=== PATIENT | male | born 1945 | race Caucasian/White ===

== ENCOUNTER 2021-03-06 11:07 | Emergency (ER) | payer OTHER ==
[~2021-03-06] VITALS: Ht 177.8 cm; Wt 79.4 kg
[~2021-03-06 11:07] MED LIST: AMLO5 PO; ATEN50 PO; DIVA500ER PO
[2021-03-06 12:23] LABS: BASOPHILS ABSOLUTE AUTO 0.07 K/mm3 (0.00-0.23); BASOPHILS PERCENT AUTO 1 % (0-2); EOSINOPHILS ABSOLUTE AUTO 0.25 K/mm3 (0.00-0.68); EOSINOPHILS PERCENT AUTO 3 % (0-6); Hematocrit 35.7 % (37.0-53.0); Hemoglobin 11.4 g/dL (13.5-17.5); IMMATURE GRAN ABSOLUTE AUTO 0.17 K/mm3 (0.00-0.10); IMMATURE GRAN PERCENT AUTO 2 % (0-1); LYMPHOCYTES ABSOLUTE AUTO 1.86 K/mm3 (0.84-5.20); LYMPHOCYTES PERCENT AUTO 19 % (21-46); MONOCYTES PERCENT AUTO 8 % (4-13); Mean Corpuscular HGB 27.3 pg (26.0-34.0); Mean Corpuscular HGB Conc 31.9 g/dL (31.5-36.5); Mean Corpuscular Volume 86 fL (80-100); Mean Platelet Volume 9.5 fL (9.1-12.4); NEUTROPHILS ABSOLUTE AUTO 6.47 K/mm3 (1.96-9.15); NEUTROPHILS PERCENT AUTO 67 % (41-73); Platelet Count 314 K/mm3 (150-400); RDW Coefficient Variation 15.4 % (11.7-14.2); RDW Standard Deviation 48.3 fL (35.1-46.3); Red Blood Cell Count 4.17 M/mm3 (4.30-5.90); White Blood Cell Count 9.62 K/mm3 (4.00-11.30)
[2021-03-06 12:49] LABS: Acetaminophen, Random <2.0 ug/mL (10.0-30.0); Alanine Aminotransfer (ALT/SGP 24 U/L (12-78); Albumin, Blood 2.7 g/dL (3.4-5.0); Albumin/Globulin Ratio 0.8 (0.8-1.8); Alk Phos 83 U/L (50-136); Anion Gap 9 mmol/L (6-16); Aspartate Aminotrans (AST/SGOT 15 U/L (12-37); Bilirubin, Total 0.2 mg/dL (0.1-1.0); Blood Urea Nitrogen 23 mg/dL (8-24); Bun/Creatinine Ratio 23.4 (12.0-20.0); CO2, Blood 26 mmol/L (21-32); Calcium, Blood 8.5 mg/dL (8.5-10.1); Chloride, Blood 107 mmol/L (98-108); Creatinine, Blood 0.98 mg/dL (0.60-1.20); Ethanol (Alcohol), Blood, Med 3 mg/dL; Globulin, Blood 3.5 g/dL (2.2-4.0); Glomerular Filtration Rate >60 (60-); Glucose, Blood 203 mg/dL (70-99); Potassium, Blood 4.2 mmol/L (3.5-5.5); Salicylate <1.7 mg/dL (2.8-20.0); Sodium, Blood 142 mmol/L (136-145); Total Protein, Blood 6.2 g/dL (6.4-8.2)
[2021-03-06 16:48] LABS: Source, Urine Catheter
[2021-03-06 17:18] LABS: Appearance, Urine Hazy (Clear); Bilirubin, Urine Neg (Neg); Blood, Urine Neg (Neg); Color, Urine Yellow (P-Yellow); Glucose Qualitative, Urine 2+ (Neg); Ketones, Urine Neg (Neg); Leukocyte Esterase, Urine Neg (Neg); Nitrite, Urine Neg (Neg); Protein, Urine Neg (Neg); Urobilinogen, Urine NORM (Normal)
[2021-03-06 17:21] LABS: U Amphetamine Screen Not Detected; U Barbituate Screen Not Detected; U Benzodiazapine Screen Not Detected; U Buprenorphine Screen Not Detected; U Cannabinoids Screen Not Detected; U Cocaine Screen Not Detected; U Methadone Screen Not Detected; U Methamphetamine Screen Not Detected; U Opiates Screen Not Detected; U Oxycodone Screen Not Detected; U Phencyclidine Screen Not Detected; U Propoxyphene Screen Not Detected
[2021-03-06 17:39] LABS: Bacteria Rare /hpf; Red Blood Cells, Urine 0-2 /hpf (0-2); Squamous Epithelial Cells Rare /hpf (Few); White Blood Cells, Urine 0-2 /hpf (0-5)
[2021-03-06 17:40] LABS: Amorphous Mod (0-Heavy)
[2021-03-06] MEDS ORDERED: OLANZAPINE MM (17:54)
== END 2021-03-06 18:07 | disposition home or self-care (01) ==
LOC: ER 11:07
PROVIDERS: Student in an Organized Health Care Education/Training Program
DX: R41.0 Disorientation, unspecified (principal); R45.1 Restlessness and agitation; I10 Essential (primary) hypertension; Z79.899 Other long term (current) drug therapy
CPT/HCPCS: 36415; 51701; 70450; 71045; 80053; 81001; 85025; 86592; 93005; 93010; 99285-25; A9270; G0480

== ENCOUNTER 2021-03-07 15:17 | Emergency (ER) | payer OTHER ==
[~2021-03-07] VITALS: Ht 177.8 cm; Wt 122.5 kg
[~2021-03-07 15:17] MED LIST changes: +OLANZAPINE MM
== END 2021-03-07 16:51 | disposition home or self-care (01) ==
LOC: ER 15:17
DX: S02.5XXA Fracture of tooth (traumatic), initial encounter for closed fracture (principal); S01.511A Laceration without foreign body of lip, initial encounter; S00.33XA Contusion of nose, initial encounter; S80.211A Abrasion, right knee, initial encounter; I10 Essential (primary) hypertension; Z79.899 Other long term (current) drug therapy; W19.XXXA Unspecified fall, initial encounter
CPT/HCPCS: 12011; 99283-25

== ENCOUNTER 2021-03-08 19:59 | Observation (INO) | payer OTHER ==
[~2021-03-08] VITALS: Ht 188 cm; Wt 117.9 kg
[2021-03-08 20:25] LABS: BASOPHILS ABSOLUTE AUTO 0.08 K/mm3 (0.00-0.23); BASOPHILS PERCENT AUTO 1 % (0-2); EOSINOPHILS PERCENT AUTO 2 % (0-6); Hematocrit 38.7 % (37.0-53.0); Hemoglobin 12.2 g/dL (13.5-17.5); IMMATURE GRAN ABSOLUTE AUTO 0.17 K/mm3 (0.00-0.10); IMMATURE GRAN PERCENT AUTO 1 % (0-1); LYMPHOCYTES ABSOLUTE AUTO 2.09 K/mm3 (0.84-5.20); LYMPHOCYTES PERCENT AUTO 17 % (21-46); MONOCYTES ABSOLUTE AUTO 1.32 K/mm3 (0.16-1.47); MONOCYTES PERCENT AUTO 11 % (4-13); Mean Corpuscular HGB Conc 31.5 g/dL (31.5-36.5); Mean Corpuscular Volume 86 fL (80-100); Mean Platelet Volume 9.4 fL (9.1-12.4); NEUTROPHILS ABSOLUTE AUTO 8.41 K/mm3 (1.96-9.15); NEUTROPHILS PERCENT AUTO 68 % (41-73); Platelet Count 323 K/mm3 (150-400); RDW Coefficient Variation 15.5 % (11.7-14.2); RDW Standard Deviation 48.3 fL (35.1-46.3); Red Blood Cell Count 4.52 M/mm3 (4.30-5.90); White Blood Cell Count 12.37 K/mm3 (4.00-11.30)
[2021-03-08 20:48] LABS: Acetaminophen, Random <2.0 ug/mL (10.0-30.0); Alanine Aminotransfer (ALT/SGP 25 U/L (12-78); Albumin/Globulin Ratio 0.8 (0.8-1.8); Alk Phos 77 U/L (50-136); Anion Gap 7 mmol/L (6-16); Aspartate Aminotrans (AST/SGOT 17 U/L (12-37); Bilirubin, Total 0.2 mg/dL (0.1-1.0); Blood Urea Nitrogen 18 mg/dL (8-24); Bun/Creatinine Ratio 21.8 (12.0-20.0); CO2, Blood 27 mmol/L (21-32); Calcium, Blood 8.8 mg/dL (8.5-10.1); Chloride, Blood 108 mmol/L (98-108); Creatinine, Blood 0.83 mg/dL (0.60-1.20); Ethanol (Alcohol), Blood, Med <3 mg/dL; Globulin, Blood 3.7 g/dL (2.2-4.0); Glomerular Filtration Rate >60 (60-); Glucose, Blood 115 mg/dL (70-99); Potassium, Blood 4.4 mmol/L (3.5-5.5); Salicylate <1.7 mg/dL (2.8-20.0); Sodium, Blood 142 mmol/L (136-145); Total Protein, Blood 6.7 g/dL (6.4-8.2)
[2021-03-08 21:24] LABS: Influenza A, PCR NEGATIVE (NEGATIVE); Influenza B, PCR NEGATIVE (NEGATIVE); Resp Syncytial Virus, PCR NEGATIVE (NEGATIVE); SARS-Cov-2 (COVID-19) PCR, MMC NEGATIVE (NEGATIVE)
[2021-03-11 21:39] LABS: BASOPHILS ABSOLUTE AUTO 0.06 K/mm3 (0.00-0.23); BASOPHILS PERCENT AUTO 0 % (0-2); EOSINOPHILS ABSOLUTE AUTO 0.17 K/mm3 (0.00-0.68); EOSINOPHILS PERCENT AUTO 1 % (0-6); Hematocrit 37.6 % (37.0-53.0); Hemoglobin 11.9 g/dL (13.5-17.5); IMMATURE GRAN ABSOLUTE AUTO 0.16 K/mm3 (0.00-0.10); IMMATURE GRAN PERCENT AUTO 1 % (0-1); LYMPHOCYTES ABSOLUTE AUTO 1.74 K/mm3 (0.84-5.20); LYMPHOCYTES PERCENT AUTO 12 % (21-46); MONOCYTES ABSOLUTE AUTO 1.71 K/mm3 (0.16-1.47); MONOCYTES PERCENT AUTO 12 % (4-13); Mean Corpuscular HGB 26.7 pg (26.0-34.0); Mean Corpuscular HGB Conc 31.6 g/dL (31.5-36.5); Mean Corpuscular Volume 85 fL (80-100); Mean Platelet Volume 9.3 fL (9.1-12.4); NEUTROPHILS ABSOLUTE AUTO 10.35 K/mm3 (1.96-9.15); NEUTROPHILS PERCENT AUTO 73 % (41-73); Platelet Count 294 K/mm3 (150-400); RDW Coefficient Variation 15.6 % (11.7-14.2); RDW Standard Deviation 47.9 fL (35.1-46.3); Red Blood Cell Count 4.45 M/mm3 (4.30-5.90); White Blood Cell Count 14.19 K/mm3 (4.00-11.30)
[2021-03-11 21:44] LABS: Source, Urine Catheter
[2021-03-11 21:54] LABS: Appearance, Urine Clear (Clear); Bilirubin, Urine Neg (Neg); Color, Urine Yellow (P-Yellow); Glucose Qualitative, Urine Neg (Neg); Nitrite, Urine Neg (Neg)
[2021-03-11 22:22] LABS: Blood, Urine 1+ (Neg); Ketones, Urine Neg (Neg); Leukocyte Esterase, Urine Neg (Neg); Protein, Urine Neg (Neg); Urobilinogen, Urine NORM (Normal)
[2021-03-11 22:32] LABS: Bacteria Rare /hpf; Red Blood Cells, Urine 0-2 /hpf (0-2); Squamous Epithelial Cells Rare /hpf (Few); White Blood Cells, Urine 0-2 /hpf (0-5)
[2021-03-11 22:33] LABS: Spermatozoa Few /hpf
[2021-03-12 02:06] LABS: Alanine Aminotransfer (ALT/SGP 23 U/L (12-78); Albumin, Blood 2.9 g/dL (3.4-5.0); Albumin/Globulin Ratio 0.7 (0.8-1.8); Alk Phos 70 U/L (50-136); Anion Gap 7 mmol/L (6-16); Aspartate Aminotrans (AST/SGOT 15 U/L (12-37); Bilirubin, Total 0.3 mg/dL (0.1-1.0); Blood Urea Nitrogen 21 mg/dL (8-24); Bun/Creatinine Ratio 22.1 (12.0-20.0); CO2, Blood 27 mmol/L (21-32); Calcium, Blood 9.3 mg/dL (8.5-10.1); Chloride, Blood 108 mmol/L (98-108); Creatinine, Blood 0.95 mg/dL (0.60-1.20); Globulin, Blood 4.3 g/dL (2.2-4.0); Glomerular Filtration Rate >60 (60-); Glucose, Blood 125 mg/dL (70-99); Potassium, Blood 4.4 mmol/L (3.5-5.5); Sodium, Blood 142 mmol/L (136-145); Total Protein, Blood 7.2 g/dL (6.4-8.2)
[2021-03-12 03:11] LABS: Influenza A, PCR NEGATIVE (NEGATIVE); Influenza B, PCR NEGATIVE (NEGATIVE); Resp Syncytial Virus, PCR NEGATIVE (NEGATIVE); SARS-Cov-2 (COVID-19) PCR, MMC NEGATIVE (NEGATIVE)
[2021-03-12 07:28] LABS: BASOPHILS ABSOLUTE AUTO 0.03 K/mm3 (0.00-0.23); BASOPHILS PERCENT AUTO 0 % (0-2); EOSINOPHILS ABSOLUTE AUTO 0.27 K/mm3 (0.00-0.68); EOSINOPHILS PERCENT AUTO 3 % (0-6); Hematocrit 35.1 % (37.0-53.0); Hemoglobin 11.2 g/dL (13.5-17.5); IMMATURE GRAN PERCENT AUTO 1 % (0-1); LYMPHOCYTES ABSOLUTE AUTO 1.71 K/mm3 (0.84-5.20); LYMPHOCYTES PERCENT AUTO 16 % (21-46); MONOCYTES ABSOLUTE AUTO 1.28 K/mm3 (0.16-1.47); MONOCYTES PERCENT AUTO 12 % (4-13); Mean Corpuscular HGB 27.1 pg (26.0-34.0); Mean Corpuscular HGB Conc 31.9 g/dL (31.5-36.5); Mean Corpuscular Volume 85 fL (80-100); Mean Platelet Volume 9.2 fL (9.1-12.4); NEUTROPHILS PERCENT AUTO 69 % (41-73); Platelet Count 241 K/mm3 (150-400); RDW Coefficient Variation 15.8 % (11.7-14.2); RDW Standard Deviation 48.5 fL (35.1-46.3); Red Blood Cell Count 4.14 M/mm3 (4.30-5.90); White Blood Cell Count 10.99 K/mm3 (4.00-11.30)
--- NOTE | 2021-03-12 17:58 | NUR ---
SHIFT SUMMARY PATIENT IS ALERT AND ORIENTED X3, PLEASANT AND COOPERATIVE WITH CARE. THE PATIENT IS IMPULSIVE AT TIMES, BUT REDIRECTABLE. LR BOLUS OF 5OOMLS GIVEN NOW. EKG ORDERED. IV IN LEFT FOREARM PATENT AND INFUSING NOW. PATIENT HAS BEEN INCONTINENT THIS SHIFT X2. PATIENT DENIES ANY PAIN OR DISCOMFORT. MD HOLD DC'D THIS SHIFT. PATIENT WORKED WITH PT/OT THIS SHIFT. PATIENT IS CURRENTLY EATING DINNER UP IN THEIR CHAIR. THIS NURSE WILL CONTINUE TO CARE FOR THE PATIENT UNTIL SHIFT REPORT IS GIVEN TO ONCOMING NURSE.
--- NOTE | 2021-03-12 19:16 | NUR ---
EKG DONE AT 1830 PER MD GARCIA'S ORDERS. EKG PRINT OUT READS SINUS TACH.
--- NOTE | 2021-03-13 05:36 | NUR ---
WILBUR SLEPT WELL OVERNIGHT WAKING TWICE WHEN HE HAD EPISODES OF URINE AND BOWEL INCONTINENCE. 2 STOOLS WERE SOFT FORMED BROWN. ONE LARGE, ONE SMALL. NO COMPLAINTS OF DISCOMFORT, HOWEVER HE WOULD GRIMACE WHEN PULLED UP THE BED, THEN DENY PAIN WHEN ASKED. WILBUR DOES HAVE A HEALTHY APPETITE FOR OJ AND CHEESE. EATING A SUBSTANTIAL AMOUNT IN THE EVENING. ,
[2021-03-13 05:53] LABS: BASOPHILS ABSOLUTE AUTO 0.04 K/mm3 (0.00-0.23); BASOPHILS PERCENT AUTO 0 % (0-2); EOSINOPHILS PERCENT AUTO 3 % (0-6); Hematocrit 34.5 % (37.0-53.0); Hemoglobin 10.8 g/dL (13.5-17.5); IMMATURE GRAN ABSOLUTE AUTO 0.13 K/mm3 (0.00-0.10); IMMATURE GRAN PERCENT AUTO 1 % (0-1); LYMPHOCYTES ABSOLUTE AUTO 2.23 K/mm3 (0.84-5.20); LYMPHOCYTES PERCENT AUTO 19 % (21-46); MONOCYTES ABSOLUTE AUTO 1.53 K/mm3 (0.16-1.47); MONOCYTES PERCENT AUTO 13 % (4-13); Mean Corpuscular HGB 26.3 pg (26.0-34.0); Mean Corpuscular HGB Conc 31.3 g/dL (31.5-36.5); Mean Corpuscular Volume 84 fL (80-100); Mean Platelet Volume 9.4 fL (9.1-12.4); NEUTROPHILS ABSOLUTE AUTO 7.78 K/mm3 (1.96-9.15); NEUTROPHILS PERCENT AUTO 65 % (41-73); Platelet Count 256 K/mm3 (150-400); RDW Coefficient Variation 15.6 % (11.7-14.2); White Blood Cell Count 12.01 K/mm3 (4.00-11.30)
[2021-03-13 07:10] LABS: COMPLEMENT C3, SERUM 180 mg/dL (82-167); COMPLEMENT C4, SERUM 31 mg/dL (12-38)
[2021-03-13] MEDS ORDERED: LOSA25 PO (07:34)
--- NOTE | 2021-03-13 17:21 | NUR ---
SHIFT SUMMARY PATIENT IS ALERT AND ORIENTED X3 UNSURE OF THE DATE. PATIENT DOES NOT UNDERSTAND WHY THEY ARE HERE. THE PATIENT HAD HYDRALIZINE FOR SYSTOLIC BP > 160. THE PATIENT IS RESTING IN BED. DECLINED GETTING UP IN CHAIR FOR DINNER. THE PATIENT IS ON RA. NO TELE. BEDALARM ER RN LIGHT WITHIN REACH. THIS NURSE WILL CONTINUE TO CARE FOR THE PATIENT UNTIL SHIFT REPORT IS GIVEN TO ONCOMING NURSE.
--- NOTE | 2021-03-13 20:52 | NUR ---
MULTIPLE OOB ATTEMPTS. ON CAMERA/BED ALARM. PATIENT SIDEWAYS IN BED. THREE ASSIST BACK INTO BED. PATIENT NOT ABLE TO ORIENT AND FOLLOW DIRECTIONS AT THIS TIME. BED ALARM ACTIVATED.
--- NOTE | 2021-03-14 03:54 | NUR ---
SHIFT SUMMARY PATIENT AXOX 2 WITH HX DEMENTIA AND BIPOLAR. IMPULSIVE HAVING MULTIPLE OOB ATTEMPTS LAYING SIDEWAYS IN BED ON ONE ATTEMPT. THREE PERSON ASSIST BACK INTO BED. ON CAMERA AND BED ALARM. NOT ABLE TO REDIRECT AT THIS TIME. SCHEDULE SEROQUEL 100 MG GIVEN AND ABLE TO SLEEP HALF THE SHIFT. VSS/AFEBRILE. HR 110 AT START OF SHIFT AND HR 103 ON SECOND SET VITALS. DENIES PAIN, SOB, AND N/V. PIV REMAINS INTACT. CALL LIGHT IN REACH. BED IN LOWEST POSITION AND ALARM ACTIVATED. WILL CONTINUE TO MONITOR UNTIL DAY SHIFT NURSE ASSUMES CARE.
[2021-03-14 05:04] LABS: BASOPHILS ABSOLUTE AUTO 0.06 K/mm3 (0.00-0.23); BASOPHILS PERCENT AUTO 1 % (0-2); EOSINOPHILS ABSOLUTE AUTO 0.44 K/mm3 (0.00-0.68); EOSINOPHILS PERCENT AUTO 4 % (0-6); Hematocrit 35.3 % (37.0-53.0); Hemoglobin 11.1 g/dL (13.5-17.5); IMMATURE GRAN ABSOLUTE AUTO 0.14 K/mm3 (0.00-0.10); IMMATURE GRAN PERCENT AUTO 1 % (0-1); LYMPHOCYTES ABSOLUTE AUTO 2.13 K/mm3 (0.84-5.20); LYMPHOCYTES PERCENT AUTO 18 % (21-46); MONOCYTES ABSOLUTE AUTO 1.58 K/mm3 (0.16-1.47); MONOCYTES PERCENT AUTO 13 % (4-13); Mean Corpuscular HGB 26.5 pg (26.0-34.0); Mean Corpuscular HGB Conc 31.4 g/dL (31.5-36.5); Mean Corpuscular Volume 84 fL (80-100); Mean Platelet Volume 9.8 fL (9.1-12.4); NEUTROPHILS ABSOLUTE AUTO 7.82 K/mm3 (1.96-9.15); NEUTROPHILS PERCENT AUTO 64 % (41-73); Platelet Count 282 K/mm3 (150-400); RDW Coefficient Variation 15.5 % (11.7-14.2); RDW Standard Deviation 47.5 fL (35.1-46.3); Red Blood Cell Count 4.19 M/mm3 (4.30-5.90); White Blood Cell Count 12.17 K/mm3 (4.00-11.30)
[2021-03-14 05:30] LABS: Anion Gap 6 mmol/L (6-16); Blood Urea Nitrogen 21 mg/dL (8-24); Bun/Creatinine Ratio 23.3 (12.0-20.0); CO2, Blood 27 mmol/L (21-32); Calcium, Blood 8.4 mg/dL (8.5-10.1); Chloride, Blood 108 mmol/L (98-108); Glomerular Filtration Rate >60 (60-); Glucose, Blood 104 mg/dL (70-99); Sodium, Blood 141 mmol/L (136-145)
--- NOTE | 2021-03-14 17:01 | NUR ---
SHIFT SUMMARY PT WAS UP WITH THE WALKER STANDBY ASSIST TODAY TO THE BATHROOMAND UP AND DOWN THE WATTS. HE STILL HAS NT HAD A BOWEL MOVEMENT AND HIS ABDOMEN IS DISTENDED AND HARD. HE PASSED GAS THIS MORNING, BUT HAS NOT HAD A BM. BOWEL PREP WAS ORDRED FOR THE PT FOR TOMORROW. HE DENIES PAIN ON PALAPATION. FADI CONTINUE TO MONITOR.
[2021-03-14 17:09] LABS: ANTI-DSDNA ANTIBODIES <1 IU/mL (0-9); RNP ANTIBODIES <0.2 AI (0.0-0.9); SJOGREN'S ANTI-SS-A <0.2 AI (0.0-0.9); SJOGREN'S ANTI-SS-B <0.2 AI (0.0-0.9); SMITH ANTIBODIES <0.2 AI (0.0-0.9)
--- NOTE | 2021-03-15 03:57 | NUR ---
SHIFT SUMMARY PATIENT HAD NO ACUTE CHANGES OBSERVED. LESS IMPULSIVE THIS SHIFT. AXOX 2 AND UP IN CHAIR T/O SHIFT, SLEEPING MOST OF SHIFT. HX DEMENTIA AND BIPOLAR. VSS/AFEBRILE. DENIES PAIN, SOB, AND N/V. ON CAMERA. TAKES MEDICATION WHOLE WITH WATER. CALL LIGHT IN REACH. BED IN LOWEST POSITION. WILL CONTINUE TO MONITOR UNTIL DAY SHIFT NURSE ASSUMES CARE.
[2021-03-15 05:10] LABS: BASOPHILS ABSOLUTE AUTO 0.06 K/mm3 (0.00-0.23); BASOPHILS PERCENT AUTO 0 % (0-2); EOSINOPHILS ABSOLUTE AUTO 0.32 K/mm3 (0.00-0.68); EOSINOPHILS PERCENT AUTO 2 % (0-6); Hematocrit 35.5 % (37.0-53.0); Hemoglobin 11.3 g/dL (13.5-17.5); IMMATURE GRAN ABSOLUTE AUTO 0.19 K/mm3 (0.00-0.10); IMMATURE GRAN PERCENT AUTO 1 % (0-1); LYMPHOCYTES ABSOLUTE AUTO 1.62 K/mm3 (0.84-5.20); LYMPHOCYTES PERCENT AUTO 12 % (21-46); MONOCYTES PERCENT AUTO 13 % (4-13); Mean Corpuscular HGB 26.7 pg (26.0-34.0); Mean Corpuscular HGB Conc 31.8 g/dL (31.5-36.5); Mean Corpuscular Volume 84 fL (80-100); Mean Platelet Volume 9.5 fL (9.1-12.4); NEUTROPHILS ABSOLUTE AUTO 9.83 K/mm3 (1.96-9.15); NEUTROPHILS PERCENT AUTO 71 % (41-73); Platelet Count 287 K/mm3 (150-400); RDW Coefficient Variation 15.5 % (11.7-14.2); RDW Standard Deviation 46.3 fL (35.1-46.3); Red Blood Cell Count 4.23 M/mm3 (4.30-5.90); White Blood Cell Count 13.82 K/mm3 (4.00-11.30)
--- NOTE | 2021-03-15 11:11 | NUR ---
LATE ENTRY: 0950: DISCUSSION WITH DR. CLANCY DURING ROUNDING. DR. CLANCY REPORTS THAT CURRENT PLAN IS PLACEMENT IN MEMORY CARE FACILITY INSTEAD OF INPATIENT PSYCHIATRIC. NO ACUTE CHANGES OR CONCERNS AT THIS TIME. WILL CONTINUE TO NAOMY.
--- NOTE | 2021-03-15 16:24 | NUR ---
SHIFT SUMMARY CURTIS WAS VISITED BY HIS ERICA, FOR SEVERAL HOURS THIS AFTERNOON. CURTIS REALLY ENJOYS HIS ICE CREAM, AND MADE MANY REQUESTS FOR ICE CREAM. RN ENCOURAGED WATER INTAKE. CURTIS VOIDING IN ATTENDS. DOZING IN HIS RECLINER, EATING WELL. NO ACUTE CHANGES. WILL CONTINUE TO MONITOR. PLAN: AWAITING PLACEMENT. HE IS PLEASANT, COOPERATIVE WITH CARE.
--- NOTE | 2021-03-16 03:21 | NUR ---
SHIFT SUMMARY PATIENT HAD NO ACUTE CHANGES OBSERVED. AXOX 2-3 WITH HX OF DEMENTIA. VSS/AFEBRILE. DENIES PAIN, SOB, AND N/V. UP IN CHAIR T/O SHIFT. SLEPT OR WATCHED TV. IMPULSIVE AT TIMES, ON CAMERA. NO EVENTS. CALL LIGHT IN REACH. BED IN LOWEST POSITION. WILL CONTINUE TO MONITOR UNTIL DAY SHIFT NURSE ASSUMES CARE.
--- NOTE | 2021-03-16 18:25 | NUR ---
DAY SHIFT SUMMARY 75 YR OLD MALE, SPENT MOST OF DAY IN CHAIR AT BEDSIDE. CHAIR ALARM ON. MILK OF MAG ADDED TO EMAR FOR BOWEL CARE. CONFUSED, ABRASSIONS PRESENT TO FACE FROM FALL AT HOME. PT ON RA, MEDS WHOLE. CALL LIGHT WITHIN REACH.
[2021-03-17 05:18] LABS: BASOPHILS ABSOLUTE AUTO 0.06 K/mm3 (0.00-0.23); BASOPHILS PERCENT AUTO 1 % (0-2); EOSINOPHILS ABSOLUTE AUTO 0.55 K/mm3 (0.00-0.68); EOSINOPHILS PERCENT AUTO 5 % (0-6); Hematocrit 33.9 % (37.0-53.0); Hemoglobin 10.6 g/dL (13.5-17.5); IMMATURE GRAN ABSOLUTE AUTO 0.13 K/mm3 (0.00-0.10); IMMATURE GRAN PERCENT AUTO 1 % (0-1); LYMPHOCYTES ABSOLUTE AUTO 2.05 K/mm3 (0.84-5.20); LYMPHOCYTES PERCENT AUTO 19 % (21-46); MONOCYTES ABSOLUTE AUTO 1.29 K/mm3 (0.16-1.47); MONOCYTES PERCENT AUTO 12 % (4-13); Mean Corpuscular HGB 26.1 pg (26.0-34.0); Mean Corpuscular HGB Conc 31.3 g/dL (31.5-36.5); Mean Corpuscular Volume 84 fL (80-100); Mean Platelet Volume 9.4 fL (9.1-12.4); NEUTROPHILS ABSOLUTE AUTO 7.03 K/mm3 (1.96-9.15); NEUTROPHILS PERCENT AUTO 63 % (41-73); Platelet Count 343 K/mm3 (150-400); RDW Coefficient Variation 15.1 % (11.7-14.2); RDW Standard Deviation 46.3 fL (35.1-46.3); Red Blood Cell Count 4.06 M/mm3 (4.30-5.90); White Blood Cell Count 11.11 K/mm3 (4.00-11.30)
--- NOTE | 2021-03-17 05:52 | NUR ---
SHIFT SUMMARY: PT IS A/OX3. WE WERE ABLE TO GET PATIENT TO STAND WITH FWW, BUT DID NOT AMBULATE. THE PT WAS COOPERATIVE AND PLEASANT, VSS, AND NO NEW CHANGES TO REPORT.
[2021-03-17 06:13] LABS: Anion Gap 6 mmol/L (6-16); Blood Urea Nitrogen 21 mg/dL (8-24); Bun/Creatinine Ratio 21.8 (12.0-20.0); CO2, Blood 27 mmol/L (21-32); Calcium, Blood 8.4 mg/dL (8.5-10.1); Chloride, Blood 106 mmol/L (98-108); Creatinine, Blood 0.97 mg/dL (0.60-1.20); Glomerular Filtration Rate >60 (60-); Glucose, Blood 113 mg/dL (70-99); Potassium, Blood 4.6 mmol/L (3.5-5.5); Sodium, Blood 139 mmol/L (136-145)
--- NOTE | 2021-03-17 17:45 | NUR ---
DAY SHIFT SUMMARY 75 YR OLD MALE, ASK FOR ICECREAM AND JUICES CONTINUIOUSLY ON SHIFT. INCONTINIENT, ATTENDS IN PLACE. BED/CHAIR ALARM ON. ABLE TO AMBULATE WITH FRONT WHEEL WALKER AND SUPERVISION. AWAITING PLACEMENT WITH MEMORY CARE OR PROVIDENCE IN PATIENT PSYCHE. ON RA, TAKES MEDS WHOLE. CONFUSED, NOT EASILY REDIRECTED. HAS HAD A COUPLE OF INCIDENTS THIS SHIFT WITH YELLING AT STAFF AND CALLING THEM LIARS OVER ICE CREAM AND JUICE, WHEN THEY STATE HE WAS JUST GIVEN ONE HE STATES THEY ARE LYING AND INSIST HE HAS NOT HAD ANY TODAY. FREQUENT ROUNDING ON PT D/T CONFUSION. CALL LIGHT WITHIN REACH.
--- NOTE | 2021-03-18 05:14 | NUR ---
SUMMARY: PT ORIENTED TO SELF AND AT TIMES SURROUNDINGS. HE'S VERY FORGETFULL, AND IMPULSIVE OOB W/CHAIR AND BED ALARMS ON FOR FALL RISK. SBA REQUIRED W/FWW. HE CAN BECOME IRRITABLE, DIFFICULT TO REDIRECT AND NONCOMPLIANT REQUIRING FREQ REMINDERS/REORIENTATION. PT OFTEN IGNORES INSTRUCTIONS AND CUES PERTAINING TO CARE AND PT SAFETY. HE ATTEMPTED TO LEAVE UNIT MULTI TIMES WHEN AMBULATING HALLS AND ONCE FOLLOWED HOUSEKEEPING OUT OF SCU, X3 STAFF REQUIRED TO RETURN TO ROOM. HE DOESN'T CALL FOR ASSIST AND DENIES NEEDS OUTSIDE OF REQUESTING SNACKS OFTEN. ATTENDS CHANGED PRN FOR INCONTINENCE AND LINEN/GOWN REPLACED D/T SATURATION W/URINE. SMEAR BM OBSERVED AND JOHN CARE COMPLETED. PT AWAITING PLACEMENT FOR MEMORY CARE VS INPATIENT PSYCH. VSS/AFEBRILE, NO ACUTE CHANGES. WCTM AND REPORT TO DAY RN.
--- NOTE | 2021-03-18 16:38 | NUR ---
PT HAD A VISITOR, WHEN THE VISITOR LEFT HE GOT OUT OF THE CHAIR AND FOLLOWED HER TO THE DOOR. THE VISITOR CONVINCED HIM TO HEAD BACK TO HIS ROOM, THEN WHEN SHE AGAIN TURNED TO LEAVE THE PT TURNED TO FOLLOW. PT BECAME IRRITATED THAT SHE WAS NOT TAKING HIM WITH HER BUT HE AMBULATED BACK TO HIS ROOM HE SEEMED TO BE TIRED FROM THE EXERTION OF THE SMALL WALK. PT BACK IN HIS RECLINER CALL LIGHT IN REACH CHAIR ALARM FOR SAFETY.
--- NOTE | 2021-03-18 18:27 | NUR ---
SHIFT SUMMARY- PT HAS BEEN UP AMBULATING IN THE HALLWAY TWICE TODAY AND THEN WAS UP AMBULATING IN THE ROOM WITH PHYSICAL THERAPY. PT IS INCONTINENT OF URINE, WHEN STAFF CHANGE HIM THEY SHOULD BE PREPARED WITH THE NEW ATTENDS PRIOR TO REMOVING THE OLD ONE THE PT HAS A TENDANCY TO PEE ON THE FLOOR WHEN HE IS BEING CHANGED. PT HAD A MED BROWN SOFT STOOL TODAY. BOWEL MEDS ARE ORDERED SCHEDULED AT THIS TIME. PT IS CURRENTLY SITTING UP IN HIS BED, CHAIR ALARM FOR SAFETY, NO S&S OF DISTRESS NO ACUTE CHANGE T/O THE DAY.
--- NOTE | 2021-03-19 04:55 | NUR ---
MACHINE BRUSH MAKER SUMMARY PATIENT HAD A FAIR SHIFT. VITALS CHECKED AND RECORDED. ASSESMENT DONE AND DOCUMENTED ALSO. NO COMPLAINTS OVERNIGHT. WILL CONTINUE TO MONITOR HIM.
--- NOTE | 2021-03-19 17:59 | NUR ---
SHIFT SUMMARY- PT A&O X 2-3. INCONTINENT OF BOWEL AND BLADDER. PT LOVES ORANGE JUICE AND DRINKS ALOT OF IT. NO ACUTE CHANGE T/O THE SHIFT TODAY. PT REFUSED A SHOWER, NO IV ACCESS NEEDED. PT CURRENTLY SITTING UP IN THE CHAIR, CALL LIGHT IN REACH NO S&S OF DISTRESS NOTED BED AND CHAIR ALARMS USED FOR PT SAFETY.
--- NOTE | 2021-03-20 04:00 | NUR ---
TECHNICAL SERVICES REPRESENTATIVE SUMMARY PATIENT HAD A FAIR SHIFT. WITH STABLE VITALS. NO COMPLAINTS LODGED OVERNIGHT. WILL CONTINUE TO MONITOR HIM.
--- NOTE | 2021-03-21 16:41 | NUR ---
PATIENT HAD A GOOD DAY, SITTING UP IN HIS CHAIR THIS SHIFT AND WILLING TO PARTICIPATE IN HIS TREATMENT. PATIENT DENIES PAIN. LS CLEAR ANTERIORLY. HEART REGULAR RATE AND RHYTHYM. BS + X4Q. CAP REFILL IS SLOW. LEFT GREAT TOE IS MISSING NAIL DUE TO ITS REMOVAL IN THE PAST BECASUE OF REPEATED INGROWN NAILS. PAITNT DENIES NUMBNESS AND TINGELING IN EXTREMITIES. SKIN IS IN TACT WITH A HEALED SCAB ON LEFT JULIO. PATIENT REPORTS NO SKIN PROBLEMS, OPEN AREAS OR ITCHING.
--- NOTE | 2021-03-22 03:50 | NUR ---
[employer] SUMMARY PATIENT HAD A FAIR SHIFT. HIS ASSESSMENT DONE AND CHARTED. V/S ARE STABLE. WILL CONTINUE TO MONITOR HIM.
--- NOTE | 2021-03-22 16:04 | NUR ---
Patient had little change since yesterday. He has pitting edema +2 in the lower extremity. Patient was up wondering the hallway in the afternoon. He had no complaints of pain or medical.
--- NOTE | 2021-03-23 03:29 | NUR ---
SOFTWARE TEAM LEADER SUMMARY PATIENT HAD A FAIR SHIFT. HIS V/S WERE STABLE. HE DID NOT LODGE ANY CONCERN OVERNIGHT. WILL CONTINUE TO MONIOTR HIM.
--- NOTE | 2021-03-23 18:25 | NUR ---
Patient is happily visiting with his this evening. He had a good day. Medication taken as prescribed. Patient still has edema in lower extremities, pitting +2 while in bed lying flat this morning. He exercised by walking the SCU hallway twice this shift with the RN. We will continue to monitor.
--- NOTE | 2021-03-24 04:41 | NUR ---
SHIFT SUMMARY: PATIENT IS A&O TO SELF AND FAMILY. PATIENT WANTED TO LEAVE THE HOSPITAL WITH , HS SEROQUEL WAS GIVEN WITH GOOD EFFECT. PATIENT IS INC. OF LARGE AMOUNTS OF URINE. TRANSFERS FROM CHAIR TO BED WITH AX2, GAIT BELT AND FWW. NEEDING CONSTANT ENCOURAGEMENT TO MOVE FEET DURING TRANSFER. VSS, NO REPORTS OF PAIN. BED ALRM IS ON FOR SAFETY.
--- NOTE | 2021-03-24 14:23 | NUR ---
PATIENT GAVE VERBAL CONSENT TO PROVIDE CARE FOR HIM.
--- NOTE | 2021-03-24 17:25 | NUR ---
SHIFT SUMMARY: PT A/O X ONE ON BEDREST. PT MORE LETHARGIC TODAY AND HAD DIFFICULTY SWALLOWING WHOLE PILLS IN APPLESAUCE THIS AM. MEDICATIONS ALLOWED TO SOFTEN AND PT ABLE TO TAKE. PT DOES RESPOND BUT IS NOT TALKATIVE TODAY HE WAS YESTERDAY. HE DID NOT YELL OUT TODAY. HE WAS PLEASANT AND COOPERATIVE WITH CARES. PT DID EAT WITHOUT DIFFICULTIES. PT REPORTED PAIN IN HIPS BUT WAS NOT SHOWING S/S OF PAIN TODAY. BS/DEB.
--- NOTE | 2021-03-24 18:12 | NUR ---
PT HAD EPISODE OF LOOSE STOOL LAST NIGHT. HE HAS HAD LOOSE STOOL AGAIN TODAY. IT IS LIQUID, WITH SMALL AMOUNT OF MUCOUS, BROWN COLORED AND DOES NOT HAVE FOUL SMELL.
--- NOTE | 2021-03-25 05:58 | NUR ---
SHIFT SUMMARY: PATIENT SLEPT WELL THIS SHIFT. NO COMPLAINTS OF OF PAIN OR DISCOMFORT. BP ARE TRENDING UPWORDS. 141/101, PATIENT IS ASYMPTOMATIC. DR MEDRANO WAS NOTIFIED, NO NEW ORDERS AT THIS TIME CONTINUE TO MONITOR.
[2021-03-25] MEDS ORDERED: DULCOLAX400 MG/5 M PO (13:36)
[2021-03-25] MEDS ORDERED: QUET100 PO (13:36)
[2021-03-25] MEDS ORDERED: DOCU100 PO (13:36)
[2021-03-25] MEDS ORDERED: SENN187 PO (13:37)
[2021-03-25] MEDS ORDERED: Seroquel Xr50 MG PO (13:37)
--- NOTE | 2021-03-25 15:53 | NUR ---
DISCHARGE SUMMARY: PATIENT DENIED PAIN OR DISCOMFORT THROUGHOUT THE SHIFT. PATIENT'S MOST VOCAL COMPLAINT WAS LENGTH OF HOSPITAL STAY. PATIENT EXPRESSED THAT HE IS LOOKING FORWARD TO GOING HOME TODAY. PATIENT UP TO CHAIR WITH 1-2 ASSIST AND FWW THROUGHOUT THE DAY. PATIENT NEEDS ENCOURAGEMENT TO PARTICIPATE IN ACTIVITY. PATIENT READY FOR DISCHARGE. MEDICATIONS FAXED TO THE [place] [facility] PER THE PATIENT'S 'S REQUEST. DISCHARGE EDUCATION AND INSTRUCTIONS PROVIDED TO THE . SHE WAS ABLE TO TEACH BACK THE INFORMATION. EXPRESSED THAT SHE WOULD BE UNABLE TO GET THE PATIENT INTO THE HOME UP THE STAIRS. DISCUSSED WITH CARE MANAGEMENT. A LIFT ASSIST RIDE WAS ARRANGED TO TRANSPORT THE PATIENT HOME AND THEN PROVIDE ASSISTANCE GETTING INTO THE HOME. EXPRESSED APPRECIATION FOR THE CARE RECEIVED. SHE REQUIRED MULTIPLE REMINDERS AND REPEATION OF INSTRUCTIONS. ALL QUESTIONS AND CONCERNS ADDRESSED. PATIENT STABLE AT TIME OF DISCHARGE.
== END 2021-03-25 15:22 | disposition home health service (06) ==
LOC: ER 19:59 → MEDS 20:00 → EOR 20:00 → MEDS 20:01 → EOR 03-12 03:45 → MEDS 03-12 03:46
PROVIDERS: Emergency Medicine; Family Medicine; Physician Assistant; ADMIT Emergency Medicine
DX: R50.9 Fever, unspecified (principal); R00.0 Tachycardia, unspecified; F31.9 Bipolar disorder, unspecified; G93.41 Metabolic encephalopathy; F03.91 Unspecified dementia, unspecified severity, with behavioral disturbance; R60.0 Localized edema; I10 Essential (primary) hypertension; Z20.822 Contact with and (suspected) exposure to COVID-19
CPT/HCPCS: 0241U; 36415; 51701; 62270; 70450; 71045; 80048; 80053; 80164; 81001; 82140; 83605; 84145; 84443; 85025; 86160; 86225; 86235; 86592; 87040; 93005; 93010; 93971; 96372; 97110; 97110-CO; 97116; 97162; 97166; 97530; 97535-CO; 99285; A9270; G0378; G0480; J0360; J1630; J1650; J7030; J7120

== ENCOUNTER 2021-04-15 09:32 | Inpatient (IN) | payer OTHER ==
[~2021-04-15] VITALS: Ht 177.8 cm; Wt 114.1 kg
[~2021-04-15 09:32] MED LIST changes: +DOCU100 PO; +DULCOLAX400 MG/5 M PO; +LOSA25 PO; +QUET100 PO; +SENN187 PO; +Seroquel Xr50 MG PO
[2021-04-15 11:29] LABS: BASOPHILS ABSOLUTE AUTO 0.08 K/mm3 (0.00-0.23); BASOPHILS PERCENT AUTO 1 % (0-2); EOSINOPHILS ABSOLUTE AUTO 0.22 K/mm3 (0.00-0.68); EOSINOPHILS PERCENT AUTO 1 % (0-6); Hematocrit 42.8 % (37.0-53.0); Hemoglobin 13.5 g/dL (13.5-17.5); IMMATURE GRAN ABSOLUTE AUTO 0.46 K/mm3 (0.00-0.10); IMMATURE GRAN PERCENT AUTO 3 % (0-1); LYMPHOCYTES ABSOLUTE AUTO 2.07 K/mm3 (0.84-5.20); LYMPHOCYTES PERCENT AUTO 12 % (21-46); MONOCYTES ABSOLUTE AUTO 1.51 K/mm3 (0.16-1.47); MONOCYTES PERCENT AUTO 9 % (4-13); Mean Corpuscular HGB 25.4 pg (26.0-34.0); Mean Corpuscular HGB Conc 31.5 g/dL (31.5-36.5); Mean Corpuscular Volume 81 fL (80-100); Mean Platelet Volume 9.3 fL (9.1-12.4); NEUTROPHILS ABSOLUTE AUTO 13.08 K/mm3 (1.96-9.15); NEUTROPHILS PERCENT AUTO 75 % (41-73); Platelet Count 451 K/mm3 (150-400); RDW Coefficient Variation 16.1 % (11.7-14.2); RDW Standard Deviation 46.9 fL (35.1-46.3); Red Blood Cell Count 5.31 M/mm3 (4.30-5.90); White Blood Cell Count 17.42 K/mm3 (4.00-11.30)
[2021-04-15 11:30] LABS: Anion Gap 8 mmol/L (6-16); Blood Urea Nitrogen 24 mg/dL (8-24); Bun/Creatinine Ratio 29.6 (12.0-20.0); CO2, Blood 25 mmol/L (21-32); Calcium, Blood 8.8 mg/dL (8.5-10.1); Chloride, Blood 104 mmol/L (98-108); Creatinine, Blood 0.81 mg/dL (0.60-1.20); Glomerular Filtration Rate >60 (60-); Glucose, Blood 113 mg/dL (70-99); Potassium, Blood 4.4 mmol/L (3.5-5.5); Sodium, Blood 137 mmol/L (136-145)
[2021-04-15 14:29] LABS: Source, Urine Clean Catch
[2021-04-15 14:37] LABS: Appearance, Urine Cloudy (Clear); Bilirubin, Urine Neg (Neg); Blood, Urine 2+ (Neg); Color, Urine Yellow (P-Yellow); Glucose Qualitative, Urine Neg (Neg); Ketones, Urine Neg (Neg); Leukocyte Esterase, Urine 3+ (Neg); Nitrite, Urine Neg (Neg); Protein, Urine 1+ (Neg); Urobilinogen, Urine NORM (Normal)
[2021-04-15 15:26] LABS: Hyaline Casts 0-2 /lpf (0-2)
[2021-04-15 15:29] LABS: Bacteria Many /hpf; Calcium Oxalate Crystals Rare /hpf; Squamous Epithelial Cells Rare /hpf (Few); White Blood Cells, Urine 50-100 /hpf (0-5)
[2021-04-15 17:58] LABS: Influenza A, PCR NEGATIVE (NEGATIVE); Influenza B, PCR NEGATIVE (NEGATIVE); Resp Syncytial Virus, PCR NEGATIVE (NEGATIVE); SARS-Cov-2 (COVID-19) PCR, MMC NEGATIVE (NEGATIVE)
--- NOTE | 2021-04-15 18:06 | NUR ---
SUMMARY PT ADMITTED FROM THE ER FOR SEPSIS, PT WITH FLAT AFFECT, ANSWERS QUESTIONS APPROPRIATELY, DOES NOT INITIATE ANY CONVERSATION, ORIENTED PT TO ROOM AND CALL SYSTEM, DR WALKER AWARE OF CONSULT, HERE TO SEE THE PT AND HIS COCCYX WOUND, RECOMMENDATION TO KEEP AREA CLEAN AND DRY, VSS, PT DENIES PAIN OR SOB, WILL CONT TO MONITOR
--- NOTE | 2021-04-16 05:14 | NUR ---
PT IS A/OX 3-4. HE REMAINED BEDBOUND DURING THE NOC SHIFT. HE STILL HAS A FLAT AFFECT, BUT IS ABLE TO ANSWER MOST QUESTIONS APPROPRIATELY. THE IS PATENT; A NEW MEPILEX DRESSING IS IN PLACE ON HIS COCCYX AND IS CDI. THE PT IS ON RA, NOT TELE, AND HAS NS INFUSING @ 75 ML/HR.
[2021-04-16 05:17] LABS: BASOPHILS ABSOLUTE AUTO 0.05 K/mm3 (0.00-0.23); BASOPHILS PERCENT AUTO 0 % (0-2); EOSINOPHILS PERCENT AUTO 3 % (0-6); Hematocrit 33.5 % (37.0-53.0); Hemoglobin 10.4 g/dL (13.5-17.5); IMMATURE GRAN ABSOLUTE AUTO 0.22 K/mm3 (0.00-0.10); IMMATURE GRAN PERCENT AUTO 2 % (0-1); LYMPHOCYTES ABSOLUTE AUTO 2.33 K/mm3 (0.84-5.20); LYMPHOCYTES PERCENT AUTO 18 % (21-46); MONOCYTES ABSOLUTE AUTO 0.93 K/mm3 (0.16-1.47); MONOCYTES PERCENT AUTO 7 % (4-13); Mean Corpuscular HGB 25.6 pg (26.0-34.0); Mean Corpuscular Volume 82 fL (80-100); Mean Platelet Volume 8.9 fL (9.1-12.4); NEUTROPHILS ABSOLUTE AUTO 8.94 K/mm3 (1.96-9.15); NEUTROPHILS PERCENT AUTO 70 % (41-73); Platelet Count 425 K/mm3 (150-400); RDW Coefficient Variation 16.1 % (11.7-14.2); RDW Standard Deviation 48.8 fL (35.1-46.3); Red Blood Cell Count 4.07 M/mm3 (4.30-5.90); White Blood Cell Count 12.87 K/mm3 (4.00-11.30)
[2021-04-16 06:01] LABS: Alanine Aminotransfer (ALT/SGP 22 U/L (12-78); Albumin, Blood 2.1 g/dL (3.4-5.0); Albumin/Globulin Ratio 0.5 (0.8-1.8); Alk Phos 64 U/L (50-136); Anion Gap 7 mmol/L (6-16); Aspartate Aminotrans (AST/SGOT 28 U/L (12-37); Bilirubin, Total 0.3 mg/dL (0.1-1.0); Blood Urea Nitrogen 17 mg/dL (8-24); Bun/Creatinine Ratio 19.4 (12.0-20.0); CO2, Blood 25 mmol/L (21-32); Calcium, Blood 8.3 mg/dL (8.5-10.1); Chloride, Blood 107 mmol/L (98-108); Creatinine, Blood 0.88 mg/dL (0.60-1.20); Glomerular Filtration Rate >60 (60-); Glucose, Blood 146 mg/dL (70-99); Potassium, Blood 3.8 mmol/L (3.5-5.5); Sodium, Blood 139 mmol/L (136-145); Total Protein, Blood 6.1 g/dL (6.4-8.2)
--- NOTE | 2021-04-16 07:59 | NUR ---
pt laying in bed with eyes closed, answers when spoke to, states he's doing ok, flat affect, lungs are clear in upper contreras, dim in bases, resp even and unlabored, no cough noted, hrr, +1 edema noted, ppp+2, cap refill <3sec, vs stable, afebrile, iv site to lac is clear and patent, ns infusing at 75mls/hr, btx4, abd flat soft nontender, voids via watts cath at this time, draining cloudy yellow urine, skin has sacral wound with dressing in place, he is bed rest at this time, lisa chavarria, call light in reach.
--- NOTE | 2021-04-16 15:49 | NUR ---
Got pt back to bed but was very difficult with three people as pt would say he wants to get back to bed but would not make any effort to help get him up and when we pulled him forward he would push back and hold on to the chair, no sure if he was not understanding or just didn't want to move, once we did get him to stand he was able to stand and pivot to bed using a walker, did not cooperate in bed to turn, would push against us, did have a small bm. attends changed and dressing to coccyx changed. positioned on his side, call light in reach.
--- NOTE | 2021-04-16 18:32 | NUR ---
pt has been sleeping in bed since we got him back to bed, did wake enough to speak to his and eat dinner. no further changes this shift, call light in reach.
--- NOTE | 2021-04-17 05:09 | NUR ---
SHIFT SUMMARY: PT IS A/OX1-2. HE STILL HAS A FLAT AFFECT, BUT SEEMED MORE DISTANT THIS SHIFT. HIS VAUGHN REMAINS PATENT AND OUTPUT IS YELLOW/CLEAR. MEPILEX DRESSING IS IN PLACE ON HIS COCCYX. XARELTO WAS ADDED FOR HIS DVTs. CALL LIGHT IS WITHIN REACH.
[2021-04-17 05:49] LABS: BASOPHILS ABSOLUTE AUTO 0.05 K/mm3 (0.00-0.23); BASOPHILS PERCENT AUTO 1 % (0-2); EOSINOPHILS ABSOLUTE AUTO 0.44 K/mm3 (0.00-0.68); EOSINOPHILS PERCENT AUTO 5 % (0-6); Hematocrit 30.7 % (37.0-53.0); Hemoglobin 9.5 g/dL (13.5-17.5); IMMATURE GRAN ABSOLUTE AUTO 0.18 K/mm3 (0.00-0.10); IMMATURE GRAN PERCENT AUTO 2 % (0-1); LYMPHOCYTES ABSOLUTE AUTO 2.18 K/mm3 (0.84-5.20); LYMPHOCYTES PERCENT AUTO 22 % (21-46); MONOCYTES ABSOLUTE AUTO 1.06 K/mm3 (0.16-1.47); MONOCYTES PERCENT AUTO 11 % (4-13); Mean Corpuscular HGB 25.5 pg (26.0-34.0); Mean Corpuscular HGB Conc 30.9 g/dL (31.5-36.5); Mean Corpuscular Volume 82 fL (80-100); NEUTROPHILS ABSOLUTE AUTO 5.87 K/mm3 (1.96-9.15); NEUTROPHILS PERCENT AUTO 60 % (41-73); Platelet Count 427 K/mm3 (150-400); RDW Coefficient Variation 16.2 % (11.7-14.2); RDW Standard Deviation 48.9 fL (35.1-46.3); Red Blood Cell Count 3.73 M/mm3 (4.30-5.90); White Blood Cell Count 9.78 K/mm3 (4.00-11.30)
[2021-04-17 06:15] LABS: Anion Gap 4 mmol/L (6-16); Blood Urea Nitrogen 12 mg/dL (8-24); Bun/Creatinine Ratio 15.3 (12.0-20.0); CO2, Blood 27 mmol/L (21-32); Calcium, Blood 8.2 mg/dL (8.5-10.1); Chloride, Blood 109 mmol/L (98-108); Creatinine, Blood 0.78 mg/dL (0.60-1.20); Glomerular Filtration Rate >60 (60-); Glucose, Blood 102 mg/dL (70-99); Potassium, Blood 3.9 mmol/L (3.5-5.5); Sodium, Blood 140 mmol/L (136-145)
--- NOTE | 2021-04-17 11:28 | NUR ---
VAUGHN REMOVED WITH 60 CC YELLOW URINE NOTED IN DRAINAGE BAG. URINAL PROVIDED TO PATIENT. TOLERATED WELLL.
--- NOTE | 2021-04-17 12:51 | NUR ---
UPDATED SPOUSE ON STATUS.
--- NOTE | 2021-04-17 13:18 | NUR ---
@ 1230, IV SALINE LOCKED.
--- NOTE | 2021-04-17 16:11 | NUR ---
RECEIVED A ALL FROM JOANNA IN WOUND CARE. UNABLE TO SEE PATIENT. STATES IF SLOUGH IS PRESENT TO APPLY CALIUM ALGENATE WITH SILVER AND BORDERED FOAM Q 3 DAYS.
--- NOTE | 2021-04-17 16:44 | NUR ---
CALCIUM ALGENATE APPLIED TO SACRAL WOUND WITH MEPELEX APPLIED PER VIV SALDANA RN. SMALL AMOUNT SLOUGH NOTED. STAGE II WOUND WITH A SMALL AREA OF BURGANDY COLORED NOTED.
--- NOTE | 2021-04-17 17:21 | NUR ---
FLAT AFFECT NOTED. PATIENT DOESN'T ALWAYS ANSWER WHEN ASKED A DIRECT QUESTIONS OR COMMAND THAT NEEDS A RESPONSE. CONTINUES ON IV UNASYN. MEDICATED PER E-MAY. VAUGHN WAS REMOVED TODAY AND PATIENT HAS VOIDED ATLEAST 2 TIME INCONTINENTLY AFTERWARDS. NEW WOUND CARE ORDERS RECEIVED AND DONE TODAY WITH CALCIUM ALGENATE AND A MEPELEX APPLIED DUE TO WOUND SIZE INSTEAD OF FOAM DRESSING. TOLERATED WELL. PATIENT POSITIONED ALTERNATED Q 2 HOURS. ATE LITTLE OF THE DIET TRAYS SERVED BUT REQUESTED AND RECEIVED SNACKS IN BETWEEN. SALINE LOCK INTACT. WILL MONITOR.
--- NOTE | 2021-04-17 18:33 | NUR ---
L FOREARM IV NOTED MISSING WITH TEGADERM INTACT. NEW IV STARTED X 1 ATTEMPT #20 GUAGE RIGHT CLARA. SALINE LOCKED. TOLERATED WELL.
--- NOTE | 2021-04-18 06:03 | NUR ---
SHIFT SUMMARY: PATIENT IS A&O TO PERSON AND PLACE, DOES NOT KNOW THE DATE. FLAT AFFECT AND WITHDRAWN. INC. OF URINE AND STOOL. DRSG CHANGE WAS COMPLETED PER WOUND CARE ORDERS X2 DUE TO SOILING WITH URINE AND FECES. VSS.
--- NOTE | 2021-04-18 12:25 | NUR ---
@ 1120, STARTED NEW IV #20 GUAGE RIGHT CLARA. TOLERATED WELL.
--- NOTE | 2021-04-18 16:19 | NUR ---
PATIENT SITTING IN CHAIR. PO FLUIDS PROVIDED. DIALED PHONE SO HE COULD TALK TO HIS .
--- NOTE | 2021-04-18 16:39 | NUR ---
AWAKE AND ALERT. STILL SITTING IN BEDSIDE CHAIR CURRENTLY TALKING ON THE PHONE. FLAT AFFECT NOTED. MEDICATED WITH IV ABX PER E-MAR. COZAAR STARTED TODAY. NO C/O PAIN VOICED. APPETITE POOR. TOLERATED PO FLUIDS. ATTENDS PRESENT FOR URINE AND STOOL. WILL MONITOR.
--- NOTE | 2021-04-18 18:22 | NUR ---
PATIENT WAS RESTRAINED IN A JONATHAN DUE TO AN ATTEMPT TO ELOPE, BECAME VERBALLY AGRESSIVE TOWARD STAFF AND REFUSED TO FOLLOW SAFETY CUES TO KEEP HIM FROM FALLING. EARLIER IN THE DAY HE REMOVED ANOTHER IV. CURRENTLY HE IS EATING DINNER AND QUIET WITH THE TV ON. SPOKE WITH PATIENT'S SPOUSE ABOUT THE SITUATION. WILL MONITOR.
[2021-04-19 05:55] LABS: BASOPHILS ABSOLUTE AUTO 0.07 K/mm3 (0.00-0.23); BASOPHILS PERCENT AUTO 1 % (0-2); EOSINOPHILS ABSOLUTE AUTO 0.45 K/mm3 (0.00-0.68); EOSINOPHILS PERCENT AUTO 5 % (0-6); Hemoglobin 10.2 g/dL (13.5-17.5); IMMATURE GRAN ABSOLUTE AUTO 0.17 K/mm3 (0.00-0.10); IMMATURE GRAN PERCENT AUTO 2 % (0-1); LYMPHOCYTES ABSOLUTE AUTO 2.38 K/mm3 (0.84-5.20); LYMPHOCYTES PERCENT AUTO 26 % (21-46); MONOCYTES PERCENT AUTO 9 % (4-13); Mean Corpuscular HGB 25.3 pg (26.0-34.0); Mean Corpuscular HGB Conc 30.9 g/dL (31.5-36.5); Mean Corpuscular Volume 82 fL (80-100); NEUTROPHILS ABSOLUTE AUTO 5.36 K/mm3 (1.96-9.15); NEUTROPHILS PERCENT AUTO 58 % (41-73); Platelet Count 515 K/mm3 (150-400); RDW Coefficient Variation 16.1 % (11.7-14.2); RDW Standard Deviation 48.3 fL (35.1-46.3); Red Blood Cell Count 4.03 M/mm3 (4.30-5.90); White Blood Cell Count 9.23 K/mm3 (4.00-11.30)
[2021-04-19 06:30] LABS: Percent Saturation 17.2 % (20.0-50.0)
--- NOTE | 2021-04-19 06:36 | NUR ---
SHIFT SUMMARY: PATIENT WAS TAKEN OUT OF JONATHAN RESTRAINT DUE TO NO ATTEMPTS TO EXIT BED. BP AND HEART RATE SHOWING POOR EFFECT FROM INCREASE OF COZAAR AND ADDITION OF NORVASC. PATIENT DENIES PAIN. PULLED OUT TWO IV'S THIS SHIFT. DR CHAN WAS NOTIFIED AND REQUESTED A NEW IV SITE BE PLACE FOR 0600 DOSE OF ANTIBIOTICS AND HAVE DAY SHIFT MD EVALUATE IF CHANGING ANTIBIOTIC TO PO. WOUND ON COCCYX IS WORSENING AND NOW HAS A DARKEN AREA, POSSIBLE DTI. DRSG IS CHANGED X3 THIS SHIFT DUE TO STOOL INC.
--- NOTE | 2021-04-19 08:59 | NUR ---
@ 2222, ALERTED BY MEDICINE TECHNOLOGIST THAT PATIENT'S IV WAS OUT. IV PULLED OUT BY THE PATIENT. NO ACTIVE BLEEDING NOTED. IV ABX JUST COMPLETED. PATIENT STATED WHEN ASKED WHY HE KEEPS PULLING IV'S OUT "I'M BORED". JONATHAN VEST REMOVED DURING THE NIGHT. WILL MONITOR.
--- NOTE | 2021-04-19 11:15 | NUR ---
DR. DAILY IN TO SEE PATIENT AND ASSESS SACRAL WOUND. INFORMED HIM OF PATIENT FREQUENTLY PULLING IV'S OUT, DISCUSSED PO ABX'S. STATES HE WILL MAKE THAT CHANGE.
--- NOTE | 2021-04-19 12:53 | NUR ---
PATIENT SITTING UP IN CHAIR FOR LUNCH.
--- NOTE | 2021-04-19 15:07 | NUR ---
MADE SEVERAL ATTEMPTS TO ASK THE PATIENT TO GET BACK INTO THE BED. HE CONTINUOULY REFUSES. EXPLAINED THAT HIS ATTENDS IS WET AND NEEDS CHANGING AND THAT CAN'T BE DONE IN A SEAT. ESCALATED TO CHARGE NURSE TO TALK TO HIM ABOUT IT. HE BEGAN RAISING HIS VOICE TO HER REFUSING. SECURITY WAS NOTIFIED AND WILL BE HERE SHORTLY TO ASSIST MOVING HIM BACK TO BED.
--- NOTE | 2021-04-19 15:52 | NUR ---
SPOUSE CALLED AND UPDATED ON STATUS. SECURITY CAME TO ASSIST PATIENT BACK TO THE BED. ATTENDS WAS CHANGED SATURATED WITH URINE. HYGIENE CARE GIVEN. THE SUPERBOWL WAS TURNED ON TO DIVERT HIS ATTENTION BEFORE AND AFTER HE WAS BACK IN BED.
--- NOTE | 2021-04-19 16:35 | NUR ---
REMAINED OUT OF RESTRAINTS TODAY. PATIENT SAT IN THE CHAIR AND REFUSED VERY DEFIANTLY TO GO BACK TO BED EVEN THOUGH HIS ATTENDS WAS WET WITH URINE. SEVERAL ATTEMPTS WERE MADE TO TALK HIM INTO TRANSFERRING BACK TO BED AND EVENTUALLY SECURITY WAS CALLED TO ASSIST WITH THE PROCESS. SPOUSE CALLED AND WAS UPDATED. DR. DAILY ROUNDED AND ASSESSED WOUND. ABX CHANGED TO PO PATIENT KEEPS PULLING IV'S OUT. CURRENTLY IN BED WATCHING THE SUPERBOWL. MEDICATED PER E-MAR. INCONTINENT OF URINE AND STOOL IN ATTENDS. DENIED PAIN. APPETITE FAIR TO POOR. WILL MONITOR.
[2021-04-20 04:48] LABS: Hematocrit 36.4 % (37.0-53.0); Hemoglobin 10.8 g/dL (13.5-17.5); Mean Corpuscular HGB 24.6 pg (26.0-34.0); Mean Corpuscular HGB Conc 29.7 g/dL (31.5-36.5); Mean Corpuscular Volume 83 fL (80-100); Mean Platelet Volume 8.8 fL (9.1-12.4); Platelet Count 519 K/mm3 (150-400); RDW Coefficient Variation 16.2 % (11.7-14.2); RDW Standard Deviation 49.1 fL (35.1-46.3); Red Blood Cell Count 4.39 M/mm3 (4.30-5.90)
[2021-04-20 05:04] LABS: Anion Gap 7 mmol/L (6-16); Blood Urea Nitrogen 10 mg/dL (8-24); Bun/Creatinine Ratio 12.2 (12.0-20.0); CO2, Blood 27 mmol/L (21-32); Calcium, Blood 8.6 mg/dL (8.5-10.1); Chloride, Blood 106 mmol/L (98-108); Creatinine, Blood 0.82 mg/dL (0.60-1.20); Glomerular Filtration Rate >60 (60-); Glucose, Blood 97 mg/dL (70-99); Potassium, Blood 3.9 mmol/L (3.5-5.5); Sodium, Blood 140 mmol/L (136-145)
--- NOTE | 2021-04-20 05:56 | NUR ---
SHIFT SUMMARY: PATIENT SET THE BED ALARM OFF AND WAS FOUND GETTING UP OUT OF THE BED. STAFF ASKED PATIENT TO WAIT FOR ASSISTANCE AND PATIENT BECAME VERY AGGITATED. STAFF WAS ABLE TO REDIRECT PATIENT BACK TO BED. AFTER A COOLING OFF PERIOD PATIENT WAS COOPERATIVE WITH STAFF AND ALOUD CARE TO BE GIVEN FOR INC, OF STOOL AND URINE. PATIENT DENIES PAIN, BP'S ARE ELEVATED AT TIMES BUT IF RECHECKED WHEN CALM IN BED A REDUCTION IS SEEN. WOUND CARE WAS GIVEN DUE TO SOILING OF DRSG. PATIENT IS ON CAMERA OBS. AND BED ALARM IS ON.
--- NOTE | 2021-04-20 09:45 | NUR ---
@ 0745, PATIENT WAS FOUND SITTING EOB WHEN BED ALARM SOUNDED. ASKED HIM TO GET BACK IN BED OR THE CHAIR. REFUSED. VOICE ESCALATED TO HIM SCREAMING "I'LL DO WHAT I WANT TO". WALKED TO HALLWAY EXIT DOOR SCREAMING "IT'S LAUREN'S DAY. I'M LEAVING". AGREED TO GO BACK TO ROOM AND SIT IN THE CHAIR. SECURITY WAS BY TO SPEAK WITH HIM. MOE MORGAN, LIFE INSURANCE SPECIALIST NURSE WAS MADE AWARE AND PRESENT TOWARD THE END OF THE EPISODE.
[2021-04-20] MEDS ORDERED: AMLO5 PO (13:31)
[2021-04-20] MEDS ORDERED: DOXY100 PO (13:32)
[2021-04-20] MEDS ORDERED: LACT PO (13:32)
[2021-04-20] MEDS ORDERED: XARELTO20 MG PO (13:32)
--- NOTE | 2021-04-20 14:52 | NUR ---
SPOKE WITH SPOUSE OVER THE PHONE WITH DISCHARGE INSTRUCTIONS. SHE STATED SHE WOULD NOT HAVE MONEY UNTIL TUESDAY TO GET ANY OF THE RX'S, SHE NEEDS HELP WITH HIM AT HOME BECAUSE OF HIS SIZE SHE CAN'T MOVE HIM BY HERSELF AND THAT SHE IS IN THE PROCESS OF GETTING READY TO MOVE. STATES HAVING HAD SOME SORT OF CONVERSATION WITH THE [facility] ABOUT SOMEONE TO GIVE HER ASSISTANCE 20 SOMETHING HOURS A WEEK AT HOME BUT IS CONCERNED WITH HOW SHE IS SUPPOSED TO MANAGE HIM THE REST OF THE TIME. STATES SHE HAS BEEN HAVING TO CALL THE LOCAL FIRE DEPARTMENT TO HELP HER MOVE HIM PRIOR TO ADMISSION. NATALIO IN [facility] RELAYED A MESSAGE TO CARE MANAGEMENT ABOUT THIS SITUATION. MOE MORGAN, PRECISION MACHINING INSTRUCTOR NURSE ALSO MADE AWARE.
--- NOTE | 2021-04-20 16:32 | NUR ---
VOICEMAIL LEFT FOR SPOUSE TO RETURN CALL ABOUT DISCHARGE UPDATE.
--- NOTE | 2021-04-20 17:09 | NUR ---
PATIENT'S WILL ARRIVE AROUND 6 PM TO PICK HIM UP. PATIENT IS SHOWERING ASSISTED BY HUMANITIES DIVISION CHAIR PRESENTLY.
--- NOTE | 2021-04-20 17:22 | NUR ---
PATIENT ESCALATED AT THE BEGINNING OF THE SHIFT WANTING TO LEAVE THEN SETTLED DOWN THE REST OF THE DAY. HE AMULATED IN ROOM BETWEEN BED AND CHAIR WITH A WALKER. HIS SHOULD BE ARRIVING SHORTLY TO PICK HIM UP FOR DISCHARGE. SHE STATES HAVING BEEN IN CONTACT WITH THE [facility] ABOUT SOME CAREGIVER ASSISTANCE, REMINDED TO LET [facility] KNOW THAT THE PATIENT HAS BEEN DISCHARGED FROM THE HOSPITAL AND THERE ARE NO CHANGES TO THE HOME HEALTH ORDERS FOR CARE TO BE RESUMED. SHE VERBALIZED UNDERSTANDING. HE JUST SHOWERED AND HAS HAD SNACKS WHILE WAITING FOR DINNER AND HIS SPOUSE TO ARRIVE. MEPELEX DRESSING CHANGED AFTER SHOWER PER DOCK LOADER. WILL MONITOR.
--- NOTE | 2021-04-20 18:23 | NUR ---
SPOUSE ARRIVED. PATIENT BEING DRESSED INTO PERSONAL CLOTHES BROUGHT IN BY SPOUSE. WILL DISCHARGE SHORTLY.
--- NOTE | 2021-04-20 18:34 | NUR ---
DISCHARGED HOME PER WHEELCHAIR PER PERSONAL VEHICLE WITH SPOUSE. NO COMPLAINTS/NEEDS VOICED AT DISCHARGE. AWAKE AND ALERT.
== END 2021-04-20 18:33 | disposition home health service (06) | DRG 872 ==
LOC: ER 09:32 → MEDS 14:48 → ER 14:52 → MEDS 16:35 → ENPENDDIS 04-20 12:19 → MEDS 04-20 18:33
PROVIDERS: Internal Medicine; Nurse Practitioner Acute Care; Student in an Organized Health Care Education/Training Program; ADMIT Internal Medicine
DX: A41.9 Sepsis, unspecified organism (principal); L03.317 Cellulitis of buttock; I82.412 Acute embolism and thrombosis of left femoral vein; R65.20 Severe sepsis without septic shock; L89.152 Pressure ulcer of sacral region, stage 2; D64.9 Anemia, unspecified; F31.9 Bipolar disorder, unspecified; I10 Essential (primary) hypertension; G30.9 Alzheimer's disease, unspecified; Z53.29 Procedure and treatment not carried out because of patient's decision for other reasons; F02.80 Dementia in other diseases classified elsewhere, unspecified severity, without behavioral disturbance, psychotic disturbance, mood disturbance, and anxiety; Z20.822 Contact with and (suspected) exposure to COVID-19; Z79.899 Other long term (current) drug therapy; Z98.890 Other specified postprocedural states; Z74.01 Bed confinement status; Z78.1 Physical restraint status
CPT/HCPCS: 0241U; 36415; 51702; 71045; 72193; 80048; 80053; 81001; 82728; 83540; 83550; 83605; 83735; 83880; 84145; 85025; 85027; 87040; 87086; 96365-59; 96366-59; 96367-59; 97110; 97162; 97530; 99285-25; A9270; J0295; J0456; J2543; J3370; J7030; J7050; Q9967

== ENCOUNTER 2021-07-04 14:25 | Inpatient (IN) | payer OTHER ==
[~2021-07-04] VITALS: Ht 180.3 cm; Wt 111.3 kg
[~2021-07-04 14:25] MED LIST changes: +DOXY100 PO; +LACT PO; +XARELTO20 MG PO
[2021-07-04] MEDS ORDERED: DIVA500EC PO (15:02)
[2021-07-04 15:09] LABS: BASOPHILS ABSOLUTE AUTO 0.07 K/mm3 (0.00-0.23); BASOPHILS PERCENT AUTO 0 % (0-2); EOSINOPHILS ABSOLUTE AUTO 0.35 K/mm3 (0.00-0.68); EOSINOPHILS PERCENT AUTO 2 % (0-6); Hemoglobin 10.2 g/dL (13.5-17.5); IMMATURE GRAN ABSOLUTE AUTO 0.16 K/mm3 (0.00-0.10); IMMATURE GRAN PERCENT AUTO 1 % (0-1); LYMPHOCYTES ABSOLUTE AUTO 2.32 K/mm3 (0.84-5.20); LYMPHOCYTES PERCENT AUTO 14 % (21-46); MONOCYTES ABSOLUTE AUTO 1.73 K/mm3 (0.16-1.47); MONOCYTES PERCENT AUTO 10 % (4-13); Mean Corpuscular HGB 24.5 pg (26.0-34.0); Mean Corpuscular HGB Conc 30.9 g/dL (31.5-36.5); Mean Corpuscular Volume 79 fL (80-100); Mean Platelet Volume 8.6 fL (9.1-12.4); NEUTROPHILS ABSOLUTE AUTO 12.35 K/mm3 (1.96-9.15); NEUTROPHILS PERCENT AUTO 73 % (41-73); Platelet Count 549 K/mm3 (150-400); RDW Coefficient Variation 16.6 % (11.7-14.2); RDW Standard Deviation 47.8 fL (35.1-46.3); Red Blood Cell Count 4.17 M/mm3 (4.30-5.90); White Blood Cell Count 16.98 K/mm3 (4.00-11.30)
[2021-07-04 15:12] LABS: Source, Urine Straight Cath
[2021-07-04 15:22] LABS: Appearance, Urine Clear (Clear); Bilirubin, Urine Neg (Neg); Blood, Urine Neg (Neg); Color, Urine Yellow (P-Yellow); Glucose Qualitative, Urine Neg (Neg); Ketones, Urine Neg (Neg); Leukocyte Esterase, Urine Neg (Neg); Nitrite, Urine Neg (Neg); Protein, Urine 1+ (Neg); Urobilinogen, Urine NORM (Normal)
[2021-07-04 15:26] LABS: Alanine Aminotransfer (ALT/SGP 16 U/L (12-78); Albumin, Blood 2.4 g/dL (3.4-5.0); Albumin/Globulin Ratio 0.5 (0.8-1.8); Alk Phos 82 U/L (50-136); Anion Gap 9 mmol/L (6-16); Aspartate Aminotrans (AST/SGOT 13 U/L (12-37); Bilirubin, Total 0.2 mg/dL (0.1-1.0); Blood Urea Nitrogen 19 mg/dL (8-24); Bun/Creatinine Ratio 27.2 (12.0-20.0); CO2, Blood 26 mmol/L (21-32); Calcium, Blood 8.9 mg/dL (8.5-10.1); Chloride, Blood 100 mmol/L (98-108); Globulin, Blood 4.9 g/dL (2.2-4.0); Glomerular Filtration Rate >60 (60-); Glucose, Blood 135 mg/dL (70-99); Potassium, Blood 4.1 mmol/L (3.5-5.5); Sodium, Blood 135 mmol/L (136-145); Total Protein, Blood 7.3 g/dL (6.4-8.2)
[2021-07-04 19:34] LABS: Percent Saturation 8.2 % (20.0-50.0)
[2021-07-05 05:10] LABS: Hematocrit 31.9 % (37.0-53.0); Hemoglobin 9.8 g/dL (13.5-17.5); Mean Corpuscular HGB 24.5 pg (26.0-34.0); Mean Corpuscular HGB Conc 30.7 g/dL (31.5-36.5); Mean Corpuscular Volume 80 fL (80-100); Mean Platelet Volume 8.8 fL (9.1-12.4); Platelet Count 490 K/mm3 (150-400); RDW Coefficient Variation 16.6 % (11.7-14.2); White Blood Cell Count 15.36 K/mm3 (4.00-11.30)
[2021-07-05 05:28] LABS: Magnesium, Blood 2.3 mg/dL (1.6-2.4)
[2021-07-05 05:29] LABS: Anion Gap 7 mmol/L (6-16); Blood Urea Nitrogen 18 mg/dL (8-24); Bun/Creatinine Ratio 22.7 (12.0-20.0); CO2, Blood 26 mmol/L (21-32); Calcium, Blood 8.7 mg/dL (8.5-10.1); Chloride, Blood 103 mmol/L (98-108); Creatinine, Blood 0.79 mg/dL (0.60-1.20); Glomerular Filtration Rate >60 (60-); Glucose, Blood 117 mg/dL (70-99); Potassium, Blood 3.8 mmol/L (3.5-5.5); Sodium, Blood 136 mmol/L (136-145)
--- NOTE | 2021-07-05 05:48 | NUR ---
NEW ADMISSION FROM ER. ON ARRIVAL TO UNIT PATIENT ALERT AND ORIENTED X4. NOTED WITH PRESSURE WOUNDS TO SACRAL/COCCYX AREA. SEE PICTURES IN CHART. PER REPORT PATIENT HAD REMOVED 3 IVS WHILE IN ER. NEW LINE PLACED ON FLOOR AND PATINET INSTRUCTED TO NOT REMOVE LINE. WHEN ASKED WHY PATIENT HAD REMOVED PRIOR LINES HE STATED HE DID NOT KNOW WHY THEY WHERE THERE. PATIENTS HEART RATE ALSO NOTED TO BE ELEVATED TO 130S. MR. HUANG CAR GROOMER NOTIFIED WITH ORDER TO MONITOR. 0500 PATIENTS HEART RATE CONTINUED TO BE ELEVATED PER VS MACHINE AND RADIAL PULSE. PATIENT ALSO WITH NS AT 125 ML/HR, BP 154/78. DR. MEDRANO UPDATED WITH ORDER TO PLACE PATIENT ON TELE MONITOR. PATIENT KEPT NPO AFTER MIDNIGHT. SLEPT THROUGHOUT THE NIGHT WITH NO BEHAVIORAL ISSUES. TURNED Q2H.
--- NOTE | 2021-07-05 15:07 | NUR ---
PATIENT HAS BEEN LETHARGIC THIS SHIFT. HE HAD A SURGERY CONSULT IN PLACE AND THEY CAME TO BRING THE PATIENT TO SURGERY. CONSENT WILL BE A 2 MD CONSENT, BECAUSE THE PATIENT IS UNABLE TO DO SO AT THIS TIME. TELE WAS REMOVED AND THE TELE BOX IS IN THE PATIENTS ROOM. IV FLUIDS WERE STOPPED.
--- NOTE | 2021-07-05 16:01 | NUR ---
07/05/21 1601 Ananya Red PATIENT ON SCHEDULED ANTIBIOTICS. RECEIVED ZOSYN TODAY AT 1240.
--- NOTE | 2021-07-05 17:59 | NUR ---
POST OP (WOUND) PATIENT CAME BACK FROM SURGERY AROUND 1630. HE REAMINED LETHARGIC FOR AT LEAST AN HOUR, AND THEN OPENED HIS EYES AND SAID "HI", I WAS CHECKING HIS VITALS. 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 PATIENT IS ON TELE, HE IS RUNNING NS AT 75 HOUR, ALONG WITH HIS ABX AT THIS TIME. PATIENTS IS HERE VISITING WITH HIM. NURSING IS TO DO DAILIY WOUND CARE. HE CAME BACK TO THE FLOOR AFTER HIS SURGERY WITH 4 X 4 AND MEFIX. WOUND CARE NURSE CONSULT CAN BE REQUESTED [facility]. HE WAS ON 02 OF 3 LITERS IN RECOVERY AND IS BACK TO 0 LITERS NOW, 95%RA. BP 136/77, PULSE 80. SPEECH IS CLEAR, EYES TRACK, AND PATIENT IS ORIENTATED TO PERSON PLACE TIME FAMILY. VAUGHN CATH IS STILL IN PLACE DRAINING PATENT.
--- NOTE | 2021-07-06 03:47 | NUR ---
AT START OF SHIFT PATIENT DROWSY/LETHARGIC, WHEN SPOKEN TO HE DOES NOT VERBALIZED WORDS RATHER NODS. AT TIME OF HS MED PASS PATIENT MORE ALERT AND OPENING HIS EYES AND ABLE TO VERBALIZE THAT HE KNOWS HE IS, DATE/YEAR, AND WHY HE IS HERE. TURNED OFTEN AND EVERY TIME HE WAS TURNED PATIENT WAS ASSESSED FOR CHANGE IN COGNITION/ALERTNESS. AT TIMES SLIGHTLY DROWSY BUT AROUSABLE. SCHEDULED NARCOTIC NOT GIVEN PATIENT WAS ALWAYS RESTING PEACEFULLY AND WHEN ASKED IF HE WAS IN PAIN HE WOULD STATE NO. VAUGHN IN PLACE DRAINING. WOUND DRESSING INTACT. IVF'S INFUSING AT 75 ML/HR PER RN REPORT RATE WAS DECREASED.
[2021-07-06 05:06] LABS: BASOPHILS ABSOLUTE AUTO 0.06 K/mm3 (0.00-0.23); BASOPHILS PERCENT AUTO 1 % (0-2); EOSINOPHILS ABSOLUTE AUTO 0.38 K/mm3 (0.00-0.68); EOSINOPHILS PERCENT AUTO 4 % (0-6); Hematocrit 28.6 % (37.0-53.0); Hemoglobin 8.6 g/dL (13.5-17.5); IMMATURE GRAN ABSOLUTE AUTO 0.12 K/mm3 (0.00-0.10); IMMATURE GRAN PERCENT AUTO 1 % (0-1); LYMPHOCYTES PERCENT AUTO 17 % (21-46); MONOCYTES ABSOLUTE AUTO 0.91 K/mm3 (0.16-1.47); MONOCYTES PERCENT AUTO 8 % (4-13); Mean Corpuscular HGB Conc 30.1 g/dL (31.5-36.5); Mean Corpuscular Volume 80 fL (80-100); Mean Platelet Volume 8.7 fL (9.1-12.4); NEUTROPHILS ABSOLUTE AUTO 7.67 K/mm3 (1.96-9.15); NEUTROPHILS PERCENT AUTO 70 % (41-73); Platelet Count 469 K/mm3 (150-400); RDW Standard Deviation 49.7 fL (35.1-46.3); Red Blood Cell Count 3.59 M/mm3 (4.30-5.90); White Blood Cell Count 10.94 K/mm3 (4.00-11.30)
[2021-07-06 05:42] LABS: Anion Gap 7 mmol/L (6-16); Blood Urea Nitrogen 15 mg/dL (8-24); Bun/Creatinine Ratio 18.8 (12.0-20.0); CO2, Blood 26 mmol/L (21-32); Calcium, Blood 8.5 mg/dL (8.5-10.1); Chloride, Blood 104 mmol/L (98-108); Glomerular Filtration Rate >60 (60-); Glucose, Blood 98 mg/dL (70-99); Potassium, Blood 3.9 mmol/L (3.5-5.5); Sodium, Blood 137 mmol/L (136-145)
--- NOTE | 2021-07-06 07:22 | NUR ---
ASSUMED CARE: PT RESTING AT THIS TIME. WITHDRAWN BUT AWAKE DURING BEDSIDE REPORT. NSR AT 88 ON TELE. NO ACUTE NEEDS OR CONCERNS AT THIS TIME.
--- NOTE | 2021-07-06 17:04 | NUR ---
Updated physician locums urgent care on pt frailty and wives decline. need to update senior services and [facility]
--- NOTE | 2021-07-06 18:46 | NUR ---
SHIFT SUMMARY: PT HAS HAD FLAT AFFECT ALL SHIFT AND IS DELAYED IN FOLLOWING DIRECTIONS. UP IN CHAIR WITH THERAPY TODAY. DRESSING TO COCCYX CHANGED DUE TO LARGE AMOUNTS OF DRAINAGE. WICC TO WOUND CHANGED PER ORDERS WELL. PT HAS DENIED PAIN ALL SHIFT. PT'S WAS AT BEDSIDE TODAY AND RECIEVED UPDATE. DENIES FURTHER NEEDS OR CONCERNS.
--- NOTE | 2021-07-07 06:01 | NUR ---
PATIENT MORE ALERT THIS SHIFT. ALERT TO SELF, PLACE, AND DATE. VERY WITHDRAWN AND FLAT AFFECT. DID NOT REQUIRE PAIN MEDICATION PATIENT WAS COMFORTABLE AND DENIED PAIN. PATIENT ON 3 OCCASSIONS ASKING FOR SOMETHING TO SLEEP HOWEVER SHORTLY AFTER WOULD FALL ASLEEP. WHEN PATIENT TOLD THIS HE WOULD JUST BLANKLY STARE. NO OTHER CHANGES NOTED. WOUND DRESSING CHANGED TWICE DUE TO DRAINAGE.
[2021-07-07 08:58] LABS: BASOPHILS ABSOLUTE AUTO 0.05 K/mm3 (0.00-0.23); BASOPHILS PERCENT AUTO 1 % (0-2); EOSINOPHILS ABSOLUTE AUTO 0.38 K/mm3 (0.00-0.68); EOSINOPHILS PERCENT AUTO 7 % (0-6); Hematocrit 31.2 % (37.0-53.0); Hemoglobin 9.3 g/dL (13.5-17.5); IMMATURE GRAN ABSOLUTE AUTO 0.17 K/mm3 (0.00-0.10); IMMATURE GRAN PERCENT AUTO 3 % (0-1); LYMPHOCYTES ABSOLUTE AUTO 1.51 K/mm3 (0.84-5.20); LYMPHOCYTES PERCENT AUTO 26 % (21-46); MONOCYTES ABSOLUTE AUTO 0.65 K/mm3 (0.16-1.47); MONOCYTES PERCENT AUTO 11 % (4-13); Mean Corpuscular HGB Conc 29.8 g/dL (31.5-36.5); Mean Corpuscular Volume 80 fL (80-100); Mean Platelet Volume 8.7 fL (9.1-12.4); NEUTROPHILS ABSOLUTE AUTO 2.97 K/mm3 (1.96-9.15); NEUTROPHILS PERCENT AUTO 52 % (41-73); Platelet Count 524 K/mm3 (150-400); RDW Coefficient Variation 16.8 % (11.7-14.2); RDW Standard Deviation 49.1 fL (35.1-46.3); Red Blood Cell Count 3.88 M/mm3 (4.30-5.90); White Blood Cell Count 5.73 K/mm3 (4.00-11.30)
--- NOTE | 2021-07-07 18:15 | NUR ---
SHIFT SUMMARY PT A&O X4, VERY FLAT AFFECT. PT @ BEDSIDE DURING VISITING HOURS. PLAN TO D/C TO [facility], POSSIBLY TOMORROW PER DR. BATISTA. PT ABLE TO INDEPENDENTLY EAT. VSS. CALL LIGHT W/IN REACH. TELE DC'ED THIS SHIFT PER DR. SOLO.
[2021-07-08 05:09] LABS: BASOPHILS ABSOLUTE AUTO 0.05 K/mm3 (0.00-0.23); BASOPHILS PERCENT AUTO 1 % (0-2); EOSINOPHILS ABSOLUTE AUTO 0.33 K/mm3 (0.00-0.68); EOSINOPHILS PERCENT AUTO 4 % (0-6); Hematocrit 30.2 % (37.0-53.0); Hemoglobin 8.9 g/dL (13.5-17.5); IMMATURE GRAN ABSOLUTE AUTO 0.38 K/mm3 (0.00-0.10); IMMATURE GRAN PERCENT AUTO 5 % (0-1); LYMPHOCYTES ABSOLUTE AUTO 2.13 K/mm3 (0.84-5.20); LYMPHOCYTES PERCENT AUTO 28 % (21-46); MONOCYTES ABSOLUTE AUTO 0.73 K/mm3 (0.16-1.47); MONOCYTES PERCENT AUTO 9 % (4-13); Mean Corpuscular HGB 23.8 pg (26.0-34.0); Mean Corpuscular HGB Conc 29.5 g/dL (31.5-36.5); Mean Corpuscular Volume 81 fL (80-100); Mean Platelet Volume 8.7 fL (9.1-12.4); NEUTROPHILS ABSOLUTE AUTO 4.13 K/mm3 (1.96-9.15); NEUTROPHILS PERCENT AUTO 53 % (41-73); Platelet Count 550 K/mm3 (150-400); RDW Coefficient Variation 16.7 % (11.7-14.2); RDW Standard Deviation 49.2 fL (35.1-46.3); Red Blood Cell Count 3.74 M/mm3 (4.30-5.90); White Blood Cell Count 7.75 K/mm3 (4.00-11.30)
--- NOTE | 2021-07-08 06:52 | NUR ---
SHIFT SUMMARY PT IS A 76 Y/O MALE, ADMITTED FOR SEPSIS R/T WOUND ON COCCYX. PT IS A&O X 2, WITHDRAWN AND QUIET. BEDREST, INCONTINENT, TURN Q2H. VITAL SIGNS STABLE, NO C/O ACUTE PAIN, NAUSEA OR SOB. PT'S PERCOCET ORDER CHANGED FROM SCHEDULED TO PRN Q6H PER HOSPITALIST DR DEAN. PT WOUND REPACKED AND DRESSED DURING THE NIGHT. NO OTHER ACUTE CHANGES IN PT CONDITION NOTED DURING THE NIGHT. WILL CONTINUE TO MONITOR AND TREAT PER EMAR UNTIL HAND OFF TO DAY SHIFT RN.
--- NOTE | 2021-07-08 18:20 | NUR ---
SHIFT SUMMARY PT AXO TO SELF, SPOUSE AND FOLLOWING DIRECTIONS. THOUGH PT IS VERY SLOW TO RESPOND WHEN MOVING AND ANSWERING QUESTIONS. UP TO CHAIR AT BEGINNING OF SHIFT WITH 1 ASSIST WITH FWW AND GB THOUGH NEEDED HEAVY CUES AND HELP INITIATING MOVEMENT. ONCE UP TO CHAIR PATIENT SAT ON EDGE OF CHAIR AND WHEN INSTRUCTED TO MOVE HIS "BOTTOM BACK IN THE CHAIR," PT DID NOT. HE LEANED BACK, SLOUCHED IN CHAIR. EVENTUALLY ALMOST SLID DOWN CHAIR. THIS NURSE, BREAKDOWN MILL OPERATOR AND ELVER WITH PHYSICAL THERPAY ASSISTED PATIENT BACK TO BED WITH VERY MINIMAL ASSISTANCE FROM PATIENT. DRESSING CHANGED X2 THIS SHIFT R/T HEAVY PURULENT DRAINAGE. BM X2 THIS SHIFT. BED IN LOW POSITION, CALL LIGHT WITHIN REACH, WHICH PATIENT IS ABLE TO USE. FEEDS SELF APPROPRIATELY WITHOUT ASPIRATION.
--- NOTE | 2021-07-09 02:55 | NUR ---
PT GAVE CONSENT TO PROVIDE 07/08/21.
--- NOTE | 2021-07-09 03:49 | NUR ---
PT A&O TO SELF AND FOLLOWS COMMANDS. PT HAS SIGNIFICANT DELAY IN RESPONDING TO QUESTIONS AND COMMANDS. PT VS STABLE DURING SHIFT. PT FOUND IN BED DURING SHIFT SIDEWAYS. PT HAD XL LOOSE INC BM. PT CLEANED UP AND RP. PT RP Q2H PER ORDERS. PT SLEPT FOR MAJORITY OF SHIFT. PT IS WITHDRAWN AND EXHIBTIS A FLAT AFFECT. PT DID NOT WANT TO GET OUT OF BED DURING SHIFT. PT COCCYX WOUND MEPILEX DRESSING DRY WITH NO PURULENT DRAINAGE SEEPING THROUGH. PT VAUGHN STILL DRAINING CLEAR YELLOW URINE. PT CURRENTLY SLEEPING WITH CALL LIGHT WITHIN REACH AND BED IN LOW POSITION.
--- NOTE | 2021-07-09 04:31 | NUR ---
I AM IN AGREEMENT WITH MEDICAL SALES REPRESENTATIVE NOTES AND ASSESSMENT
--- NOTE | 2021-07-09 07:36 | NUR ---
AT END OF SHIFT PT WAS FOUND IN ROOM WITH XXL LOOSE STOOL COVERING ENTIRE BED. IT WAS REDDISH BROWN IN COLOR AND A SAMPLE WAS TAKEN FOR TESTING.
[2021-07-09 09:52] LABS: BASOPHILS ABSOLUTE AUTO 0.04 K/mm3 (0.00-0.23); BASOPHILS PERCENT AUTO 1 % (0-2); EOSINOPHILS ABSOLUTE AUTO 0.22 K/mm3 (0.00-0.68); EOSINOPHILS PERCENT AUTO 3 % (0-6); Hematocrit 28.6 % (37.0-53.0); Hemoglobin 8.6 g/dL (13.5-17.5); IMMATURE GRAN ABSOLUTE AUTO 0.42 K/mm3 (0.00-0.10); IMMATURE GRAN PERCENT AUTO 5 % (0-1); LYMPHOCYTES ABSOLUTE AUTO 2.07 K/mm3 (0.84-5.20); LYMPHOCYTES PERCENT AUTO 24 % (21-46); MONOCYTES ABSOLUTE AUTO 0.64 K/mm3 (0.16-1.47); MONOCYTES PERCENT AUTO 8 % (4-13); Mean Corpuscular HGB 24.3 pg (26.0-34.0); Mean Corpuscular HGB Conc 30.1 g/dL (31.5-36.5); Mean Corpuscular Volume 81 fL (80-100); Mean Platelet Volume 8.4 fL (9.1-12.4); NEUTROPHILS PERCENT AUTO 60 % (41-73); NRBC ABSOLUTE 0.02 K/mm3 (0.00-0.02); NRBC Auto 0.2 /100 WBC (0.0-0.2); Platelet Count 514 K/mm3 (150-400); RDW Coefficient Variation 16.8 % (11.7-14.2); RDW Standard Deviation 49.7 fL (35.1-46.3); Red Blood Cell Count 3.54 M/mm3 (4.30-5.90); White Blood Cell Count 8.59 K/mm3 (4.00-11.30)
[2021-07-09 10:11] LABS: Anion Gap 8 mmol/L (6-16); Blood Urea Nitrogen 14 mg/dL (8-24); Bun/Creatinine Ratio 19.9 (12.0-20.0); CO2, Blood 25 mmol/L (21-32); Calcium, Blood 8.9 mg/dL (8.5-10.1); Chloride, Blood 107 mmol/L (98-108); Creatinine, Blood 0.71 mg/dL (0.60-1.20); Glomerular Filtration Rate >60 (60-); Glucose, Blood 132 mg/dL (70-99); Sodium, Blood 140 mmol/L (136-145)
[2021-07-09 13:43] LABS: Stool Occult Blood Guaiac 1 Pos (Neg)
[2021-07-09 14:04] LABS: C DIFFICILE DNA NEGATIVE (Negative)
--- NOTE | 2021-07-09 15:50 | NUR ---
Pt sitting in recliner, liquid stool running down patients legs, pool of red stool observed at the patients feet. Pt continued to have liquid stool, while performing cares. BP/HR stable, pt able to stand pivot to bed. changed dressing on coccyx. Sent stool sample to lab, Guiac resulted positive. 1330 Pt OOB removed sealed tube from watts, walking towards door, pt incontinent of liquid stool. Pt trying to pull out watst, removed watts. Performed kentrell-care and helped pt back to bed. This afternoon pt OOB several times leaving room, walking towards the elevators. Staff attempted to redirect, pt began raising voice and yelling profanities to staff. Security helped escort pt back to room, this occured three more times, sitter at bedside. Unable to redirect pt getting OOB, explained to pt that he is a fall risk, and we are trying to keep him safe. Pt stated he doesn't care if he falls, let him fall down". Rechecked BP 140/89, HR 89. ordered shari restraints, pt resting in bed. Lab came to redraw H/H.
[2021-07-09 17:12] LABS: Hematocrit 28.5 % (37.0-53.0); Hemoglobin 8.6 g/dL (13.5-17.5)
--- NOTE | 2021-07-09 21:16 | NUR ---
PT GAVE CONSENT TO PROVIDE CARE 07/09/21.
[2021-07-10 04:45] LABS: Hematocrit 28.3 % (37.0-53.0); Hemoglobin 8.4 g/dL (13.5-17.5); Mean Corpuscular HGB Conc 29.7 g/dL (31.5-36.5); Mean Corpuscular Volume 81 fL (80-100); Mean Platelet Volume 8.4 fL (9.1-12.4); Platelet Count 524 K/mm3 (150-400); RDW Coefficient Variation 16.8 % (11.7-14.2); RDW Standard Deviation 49.1 fL (35.1-46.3)
[2021-07-10 05:06] LABS: BAND PERCENT MAN 4 % (0-8); BASOPHILS PERCENT MAN 0 % (0-2); EOSINOPHILS PERCENT MAN 4 % (0-6); LYMPHOCYTES PERCENT MAN 28 % (21-46); METAMYELOCYTE ABSOLUTE MAN 0.15 K/mm3 (0.00-0.00); METAMYELOCYTE PERCENT MAN 2 % (0-0); MONOCYTES PERCENT MAN 4 % (4-13); MYELOCYTE ABSOLUTE MAN 0.07 K/mm3 (0.00-0.00); MYELOCYTE PERCENT MAN 1 % (0-0); NEUTROPHILS ABSOLUTE MAN 4.57 K/mm3 (1.96-9.15); SEG NEUTROPHILS PERCENT MAN 57 % (41-73); TOTAL CELLS COUNTED 100
[2021-07-10 05:10] LABS: Anion Gap 7 mmol/L (6-16); Blood Urea Nitrogen 16 mg/dL (8-24); Bun/Creatinine Ratio 22.6 (12.0-20.0); CO2, Blood 28 mmol/L (21-32); Calcium, Blood 9.1 mg/dL (8.5-10.1); Chloride, Blood 108 mmol/L (98-108); Creatinine, Blood 0.71 mg/dL (0.60-1.20); Glomerular Filtration Rate >60 (60-); Glucose, Blood 98 mg/dL (70-99); Potassium, Blood 3.8 mmol/L (3.5-5.5); Sodium, Blood 143 mmol/L (136-145)
--- NOTE | 2021-07-10 05:26 | NUR ---
PT A&O TO SELF AND DATE OF . PT WITHDRAWN AND RESISTING WHEN CARE PROVIDED. PT INCONTINENT OF URINE X 4. HEAVY WETTER. PT IS STILL IN JONATHAN WITH Q2H REASSESSMENT. PT MEPILEX DRESSING AND IODNOFORM PACKING CHANGED DURING SHIFT. PT IS CURRENTLY SLEEPING WITH CALL LIGHT WITHIN REACH AND BED IN LOW POSITION.
--- NOTE | 2021-07-10 05:38 | NUR ---
I AM IN AGREEMENT WITH ROOF PANEL HANGER NOTES AND ASSESSMENT
--- NOTE | 2021-07-10 08:39 | NUR ---
NO IV ACCESS ORDER WAS PLACED YESTERDAY. IV ABX DUE. CALLED DR TRAORE. DAVID PLACE IV. GIVE ABX.
--- NOTE | 2021-07-10 17:13 | NUR ---
PT FLAT AND NOT REDIRECTABLE WITH CARE. PT A/O TO SELF. DECLINES PAIN. H/R REGULAR. NO MURMUR NOTED. NO TELE. ON ROOM AIR. BREATHING IS CLEAR AND UNLABORED. PT IN JONATHAN DUE TO PULLNG AT LINES, TUBES AND TRYING TO GET UP AND LEAVE. ORDER RENEWED. PT INCONTINENT WITH URINE AND BOWELS. SMEAR OF BOWELS ON UNDERGARMENTS, SLIGHT RED TINT. CONDOM CATHETER IN PLACE FOR INCONTINENCE. PT CONTINUALLY PULLS AT CONDOM CATH AND IV. MEPLEX IN PLACE ON COCCYX. C/D/I. BED IN LOW POSITION, CALL LIGHT IN REACH.
--- NOTE | 2021-07-10 18:40 | NUR ---
AGREE WITH STUDENT NOTES AND ASSESSMENTS.
--- NOTE | 2021-07-10 23:18 | NUR ---
1900 PER DAY RN, PT PULLED THEIR VAUGHN OUT.
--- NOTE | 2021-07-11 01:26 | NUR ---
PT PULLED OFF CONDOM CATH THIS SHIFT. PER DAY SHIFT HE ALSO PULLED ONE OFF. DUE TO THIS REPEATING BEHAVIOR, NO NEW CONDOM CATH WAS PLACED. JONATHAN BOJORQUEZ REMOVED THIS SHIFT FOR TRIAL PERIOD. PT HAS BEEN ASLEEP AND THERE IS NO NEED FOR RESTRAINTS AT THIS TIME.
[2021-07-11 05:21] LABS: BASOPHILS ABSOLUTE AUTO 0.05 K/mm3 (0.00-0.23); BASOPHILS PERCENT AUTO 1 % (0-2); EOSINOPHILS ABSOLUTE AUTO 0.42 K/mm3 (0.00-0.68); EOSINOPHILS PERCENT AUTO 5 % (0-6); Hematocrit 27.1 % (37.0-53.0); Hemoglobin 8.1 g/dL (13.5-17.5); IMMATURE GRAN ABSOLUTE AUTO 0.42 K/mm3 (0.00-0.10); IMMATURE GRAN PERCENT AUTO 5 % (0-1); LYMPHOCYTES ABSOLUTE AUTO 2.79 K/mm3 (0.84-5.20); LYMPHOCYTES PERCENT AUTO 33 % (21-46); MONOCYTES PERCENT AUTO 9 % (4-13); Mean Corpuscular HGB 24.2 pg (26.0-34.0); Mean Corpuscular HGB Conc 29.9 g/dL (31.5-36.5); Mean Corpuscular Volume 81 fL (80-100); Mean Platelet Volume 8.6 fL (9.1-12.4); NEUTROPHILS ABSOLUTE AUTO 4.04 K/mm3 (1.96-9.15); NEUTROPHILS PERCENT AUTO 48 % (41-73); NRBC ABSOLUTE 0.02 K/mm3 (0.00-0.02); NRBC Auto 0.2 /100 WBC (0.0-0.2); Platelet Count 517 K/mm3 (150-400); RDW Coefficient Variation 17.2 % (11.7-14.2); RDW Standard Deviation 50.4 fL (35.1-46.3); Red Blood Cell Count 3.35 M/mm3 (4.30-5.90); White Blood Cell Count 8.52 K/mm3 (4.00-11.30)
[2021-07-11 05:47] LABS: Albumin, Blood 2.5 g/dL (3.4-5.0); Anion Gap 6 mmol/L (6-16); Blood Urea Nitrogen 18 mg/dL (8-24); Bun/Creatinine Ratio 23.1 (12.0-20.0); CO2, Blood 28 mmol/L (21-32); Calcium, Blood 8.7 mg/dL (8.5-10.1); Chloride, Blood 108 mmol/L (98-108); Creatinine, Blood 0.78 mg/dL (0.60-1.20); Glomerular Filtration Rate >60 (60-); Glucose, Blood 98 mg/dL (70-99); Phosphorus, Blood 4.4 mg/dL (2.5-4.9); Sodium, Blood 142 mmol/L (136-145)
--- NOTE | 2021-07-11 06:21 | NUR ---
SHIFT SUMMARY 76 YR M ADMITTED ON 07/04/21. FULL CODE. JONATHAN BOJORQUEZ WAS DC'D THIS SHIFT. PT HAS SLEPT WELL AND HAS NOT ATTEMPTED TO GET OUT OF BED. HE DID PULL OFF HIS CONDOM CATH FOR THE SECOND TIME SO THIS NURSE DC'D THE CATH. PT IS TOLERANT WHEN CHANGED BUT REFUSES TO HELP OR PARTICIPATE IN HIS OWN CARE SUCH ROLLING OVER WHEN ASKED. HE IS VERY SLOW TO RESPOND, IF AT WELL WHEN HE IS SLEEPING. WILL CONTINUE TO MONITOR FOR AGRESSIVENESS AND BED EXITING. THE GOAL IS TO KEEP HIM OUT OF RESTRAINTS. PLACEMENT PENDING. MEPILEX ON COCCYX CHANGED THIS SHIFT.
--- NOTE | 2021-07-11 17:04 | NUR ---
SHIFT SUMMARY PATIENT DENIES PAIN, NAUSEA, AND SHORTNESS OF BREATH. PATIENT IS A 2P FOR TRANSFERS DUE TO WEAKNESS AND PATIENT NOT FOLLOWING DIRECTIONS WELL. PATIENT OFTEN TIMES NOT REDIRECTABLE. PATIENT WILL GET AGITATED AND YELL/CURSE AT STAFF. PATIENT IS A&O X2 MOSTLY. JONATHAN VEST APPLIED THIS MORNING DUE TO PATIENT BEING COMBATIVE WITH STAFF, ATTEMPTING TO WALK IN HALLWAY WITH STOOL RUNNING DOWN LEGS. MULTIPLE ATTEMPTS TO REDIRECT, UNSUCCESSFUL. PRN AGITATED MEDICATION GIVEN TWICE. JONATHAN REMOVED 1230. PATIENT CALM SINCE THEN. MEDICATION EFFECTIVE. VISITED IN AFTERNOON. PATIENT IS EATING AND DRINKING WELL.
--- NOTE | 2021-07-12 04:26 | NUR ---
patient transferred from Medical unit at 1999. Patient alert, minimal responses to conversation. Patient with soiled brief at transfer, he easily allowed himself to be cleaned and dressing changed on his right buttock. Patient able to ambulate in morrison with sba. patient able to swallow his HS medication whole with orange juice. patient slept quietly the majority of the night. Nursing plan of care updated.
[2021-07-12 05:32] LABS: Hematocrit 28.5 % (37.0-53.0); Hemoglobin 8.4 g/dL (13.5-17.5)
--- NOTE | 2021-07-12 16:55 | NUR ---
SHIFT SUMMARY PT A&O X4 AND IN PLEASENT MOOD T/O SHIFT, THOUGH APPEARS WITHDRAWN. PT RESTED COMFORTABLY IN BED T/O SHIFT. WOUND REDRESSED/PACKED THIS SHIFT. HPTN NOTED, OTHER VSS. BED ALARM IN PLACE. CALL LIGHT W/IN REACH. C/O FOOD PROVIDED.
--- NOTE | 2021-07-12 16:59 | NUR ---
PLAN TO OBTAIN UPDATED PHOTO W/ NEXT DRESSING CHANGE.
--- NOTE | 2021-07-13 04:22 | NUR ---
Patient with VSS on RA overnight. Patient sleepy but arousable. Able to answer sinple questions with one word answers. Able to swallow HS medications whole with orange juice. patient incontinent of both bladder and bowel. Stool sample sent for guiac as some of his stools looked blood tinged overnight. Awaiting lab results. Mepilex changed on his rght buttock wound but did not change iodoform as it appreared clean. No other acute skin issues noted.
[2021-07-13 09:54] LABS: Stool Occult Blood Guaiac 1 Pos (Neg)
[2021-07-13 10:17] LABS: BASOPHILS ABSOLUTE AUTO 0.02 K/mm3 (0.00-0.23); BASOPHILS PERCENT AUTO 0 % (0-2); EOSINOPHILS ABSOLUTE AUTO 0.29 K/mm3 (0.00-0.68); EOSINOPHILS PERCENT AUTO 4 % (0-6); Hematocrit 24.4 % (37.0-53.0); Hemoglobin 7.2 g/dL (13.5-17.5); IMMATURE GRAN ABSOLUTE AUTO 0.15 K/mm3 (0.00-0.10); IMMATURE GRAN PERCENT AUTO 2 % (0-1); LYMPHOCYTES ABSOLUTE AUTO 2.07 K/mm3 (0.84-5.20); LYMPHOCYTES PERCENT AUTO 29 % (21-46); MONOCYTES ABSOLUTE AUTO 0.73 K/mm3 (0.16-1.47); MONOCYTES PERCENT AUTO 10 % (4-13); Mean Corpuscular HGB 24.2 pg (26.0-34.0); Mean Corpuscular HGB Conc 29.5 g/dL (31.5-36.5); Mean Corpuscular Volume 82 fL (80-100); Mean Platelet Volume 8.6 fL (9.1-12.4); NEUTROPHILS PERCENT AUTO 54 % (41-73); Platelet Count 467 K/mm3 (150-400); RDW Coefficient Variation 17.8 % (11.7-14.2); Red Blood Cell Count 2.97 M/mm3 (4.30-5.90); White Blood Cell Count 7.06 K/mm3 (4.00-11.30)
[2021-07-13 10:33] LABS: Albumin, Blood 2.3 g/dL (3.4-5.0); Anion Gap 4 mmol/L (6-16); Blood Urea Nitrogen 19 mg/dL (8-24); Bun/Creatinine Ratio 24.8 (12.0-20.0); CO2, Blood 30 mmol/L (21-32); Calcium, Blood 8.4 mg/dL (8.5-10.1); Chloride, Blood 110 mmol/L (98-108); Creatinine, Blood 0.77 mg/dL (0.60-1.20); Glomerular Filtration Rate >60 (60-); Glucose, Blood 94 mg/dL (70-99); Phosphorus, Blood 2.7 mg/dL (2.5-4.9); Potassium, Blood 4.1 mmol/L (3.5-5.5); Sodium, Blood 144 mmol/L (136-145)
--- NOTE | 2021-07-13 11:48 | NUR ---
ELEVATED HR AND LOWER BP: PATIENT EXPERIENCED AN INCREASING HEART RATE AND DECREASING BP THIS MORNING. PATIENT HAS HAD SOME LOOSE, DARK STOOLS. DISCUSSED WITH DR. TRAORE. NEW ORDERS RECEIVED. PATIENT RESPONDED WELL TO FLUID BOLUS. PATIENT BP INCREASED AND HR DECREASED. PATIENT DENIED DIZZINESS OR DISCOMFORT THROUGHOUT THIS MORNING. DR. TRAORE AWARE OF IMPROVEMENT. PATIENT TRANSITIONED TO CLEAR LIQUID DIET FOR LUNCH IN ANTICIPATION OF COLONOSCOPY TOMORROW.
[2021-07-13 16:04] LABS: Hematocrit 29.2 % (37.0-53.0); Hemoglobin 8.7 g/dL (13.5-17.5)
--- NOTE | 2021-07-13 18:22 | NUR ---
ELEVATED HR: NOTIFIED BY TELEMETRY THAT THE PATIENT HAS BEEN SUSTAINING A HR OF AVG 125 IN SINUS TACH FOR THE LAST 10 MINUTES. VITAL SIGNS ARE STABLE (BP OF 132/94). PATIENT DENIES CHEST PAIN, DIZZINESS OR OTHER DISCOMFORT. PATIENT HAS BEEN HAVING SOME AGITATION. MEDICATED PER PRNS ABOUT [address] TRAORE[address] REQUESTED THAT TELEMETRY NOTIFY RN OF CHANGES. NO NEW ORDERS AT THIS TIME.
--- NOTE | 2021-07-13 18:24 | NUR ---
END OF SHIFT SUMMARY: PATIENT DENIED PAIN AND DISCOMFORT THROUGHOUT THE DAY. PATIENT CONTINUES TO HAVE LOOSE, DARK BROWN STOOLS. PATIENT WAS CALM AND COOPERATIVE THROUGHOUT THE DAY. HOWEVER, STARTING AROUND DINNER TIME, PATIENT STARTED TO HAVE INCREASED AGITATION. PATIENT FREQUENTLY ATTEMPTINT TO GET UP FROM BED/CHAIR AND MAKING LOUD STATEMENTS SUCH "I DON'T WANT TO SIT DOWN". MEDICATED PER PRNS. PATIENT REDIRECTABLE AND CALM WITH STAFF. PATIENT HAD SOME ELEVATED HRS AND LOWER BPS THIS MORNING (SEE NOTE). PATIENT RESPONDED WELL TO THE IV FLUID BOLUS AND HAD STABLE VITALS THROUGHOUT THE DAY (HR AROUND 90). NEAR THE END OF SHIFT, PATIENT HAD AN ELEVATED HR (SEE NURSES NOTE). PATIENT'S CAME TO VISIT THE PATIENT THIS AFTERNOON. SHE REQUIRED MULTIPLE REMINDERS TO THE SITUATION AND THE PLAN. SHE IS SUPPORTIVE OF THE PATIENT AND "JUST WANTS HIM HOME". SHE REPORTS THAT THEIR NEW PLACE AT [facility] IS READY AND SHE IS CURRENTLY LIVING THERE.
--- NOTE | 2021-07-13 19:39 | NUR ---
BOWEL PREP: RN WENT INTO THE ROOM WITH THE BOWEL PREP. PATIENT REFUSED. PROVIDED AN EXPLANATION TO THE REASONING BEHIND THE COLONOSCOPY AND HOW IT WOULD AFFECT THE PATIENT. WHEN EXPLAINED THAT IT WOULD MAKE IT DIFFICULT TO DECIDE HOW TO PROCEED WITH CARE, THE PATIENT SAID IT DID NOT BOTHER HIM. PATIENT CLEARLY REFUSED THE COLONOSCOPY AND PREP. NOTIFIED NOC CHARISSE.
--- NOTE | 2021-07-13 19:59 | NUR ---
PT REFUSING PREP FOR TOMORROW PT NOT RESPONDING TO RN'S OR GI CONSULT DR. MEDINA. PT REFUSING BOWEL PREP. PT WILL BE PUT BACK ON REGULAR DIET. PROCEDURE FOR TOMORROW IS CANCELLED
--- NOTE | 2021-07-13 20:16 | NUR ---
PT REFUSED PM RX PT CLEARLY TOLD ME, "NO", WHEN I OFFERED HIM HIS PM MEDICATIONS. HE DID SAY, "YES", TO FOOD.
--- NOTE | 2021-07-13 23:45 | NUR ---
CALLED HOSPITALIST PT IS A HIGH FALL RISK. PT FREQUENTLY EXITING BED. UNABLE TO REDIRECT. NEW ORDERS RECEIVED
--- NOTE | 2021-07-14 04:20 | NUR ---
SHIFT SUMMARY ADMITTED FOR SEPSIS/ RT. GLUTEAL ULCER. FULL CODE. MAY HAVE GI BLEED, MASS FOUND IN COLON. PLAN FOR COLONOSCOPY CANCELLED. PT REFUSED TO DO BOWEL PREP. TELEMETRY: TACHY @ 125 BPM. IMPULSIVE, FREQUENT ATTEMPTS TO EXIT BED. HIGH FALL RISK. JONATHAN APPLIED FOR SAFETY. PT REFUSED ALL MEDICATIONS EXCEPT ONE. HE IS INCONTINENT. RA.
--- NOTE | 2021-07-14 18:11 | NUR ---
SHIFT SUMMARY: PATIENT ALERT AND ORIENTED X2. HE HAS BEEN VERY CONFUSED TODAY. HE IS CURRENTLY IN A JONATHAN VEST AND IS ATTEMPTING TO TAKE IT OFF. HE HAS PULLED OUT HIS IV TWICE TODAY. DR. NAVA STATED TO NOT ATTEMPT A NEW IV UNTIL HIS COLONOSCOPY. THE RETAIL MAINTENANCE TECHNICIAN NURSE STATED THAT HE REFUSED HIS BOWEL PREP FOR HIS PROCEDURE. HE SAID HE WOULD DRINK IT TONIGHT STARTING WITH THE FIRST DOSE AT 1900. HE HAS TRACE AMOUNTS OF BLOOD IN HIS STOOLS. HE HAS A WOUND ON HIS BOTTOM WITH A NEW DRESSING PLACED TODAY. HE IS ON TELE WITH A TACHYCARDIC RHYTHM OF 89 BPM. BED IN LOWEST POSITION. CALL LIGHT IN PLACE. BED AND CHAIR ALARM ON.
--- NOTE | 2021-07-14 21:36 | NUR ---
PT is supposed to be be taking bowel prep for colonoscopy that he had refused last PM. PT's Nicole imforms this RN she will not allow PT to take bowel prep she does not want him to have colonoscopy despite mass seen on CT. PT refused to consume more than a sip of bowel prep with HS meds. PT & verbalize that the colonoscopy is due to mass & GI bleeding but continue to refuse.
--- NOTE | 2021-07-15 02:43 | NUR ---
PT had informed this RN she would not consent to bowel prep for colonoscopy or colonoscopy to assess mass seen on abd pr pelvic CT & PT has refused to consume oral prep multiple times. DR Mansfield had seen PT & wrote for more oral PREP. Called DR singh to inform of Wifes refusal & PT's refusal to consume bowel prep. NPO status dc colonoscopy DC, guiac stools dc. Gen diet rx for PT . PT is [place] & has dementia was admitted with sepsis & decub which has required I & D due to abscess & reportedly is able to make medical decisions for PT. Incontinent of bowel & bladder,PT has vest restraint to prevent falls. PT on oral abx to treat sepsis. PT & Spouse verbalize that colonoscopy was needed due to need to bx & for GI bleed. Both refuse prep & procedure.
--- NOTE | 2021-07-15 17:46 | NUR ---
pt out of restraints breath much more even and comfortable. Daughter in to visit. Will continue to monitor closely for air hunger or aggitation. Pt appears much more cachectic.
--- NOTE | 2021-07-15 17:58 | NUR ---
pt up in chair aggitted incontinent on floor of urine. Pt trying to elope the hallway. Not easily directable. He answers in one word usually no. Difficulty tracking conversation. slowly reviewed his needs and our need to protect him. pt needs hospice care. Review with healthcare customer service and team will follow up. Have been seeing pt since he came in she looks like she is till wearing the sme clothing all week. will [facility].
--- NOTE | 2021-07-15 18:27 | NUR ---
SHIFT SUMMARY PT HAS HAD A DIFFICULT DAY TODAY. IT SEEMS THOUGH HE IS NOT WILLING TO ACCEPT THE IDEA OF A COLONOSCOPY AND HE AND HIS BOTH ACKNOWLEDGED THAT HE WAS OK WITH NOT RECIEVING A COLONOSCOPY EVEN IF THAT WOULD MEAN HE MIGHT FROM AN UNTREATED CANCER. HE STATED TO NURSING STAFF, HIS , AND THE DR THAT HE WOULD LIKE TO RETURN HOME. HOWEVER, THERE IS A CONCERN ABOUT BOTH HIS AND HIS MENTAL STATUS AND THEIR ABILITY TO CARE FOR THEMSELVES. THEY ARE NOW LOOKING INTO ALTERNATIVE ROUTES OTHER THAN RETURNING TO [facility] TO HELP THEM RETURN HOME SAFELY. PT IS STILL IN A JONATHAN VEST HE IS UNSTEADY ON HIS FEET AND CONSTANTLY GETS UP AND DOWN WHEN VEST IS REMOVED. HE IS UPSET ABOUT THIS BUT WITHIN THE LAST HOUR HAS ACCEPTED IT AND GONE TO SLEEP. WILL CONTINUE TO MONITOR.
--- NOTE | 2021-07-16 03:46 | NUR ---
DC vest restraint due to no attempts to climb out of bed. Needs 2 assist for repositioning & toileting. Bed alarm activated fall precautions.
[2021-07-16 05:17] LABS: Hematocrit 25.9 % (37.0-53.0); Hemoglobin 7.7 g/dL (13.5-17.5); Mean Corpuscular HGB 24.3 pg (26.0-34.0); Mean Corpuscular HGB Conc 29.7 g/dL (31.5-36.5); Mean Corpuscular Volume 82 fL (80-100); Platelet Count 488 K/mm3 (150-400); RDW Coefficient Variation 18.5 % (11.7-14.2); RDW Standard Deviation 54.7 fL (35.1-46.3); Red Blood Cell Count 3.17 M/mm3 (4.30-5.90); White Blood Cell Count 9.43 K/mm3 (4.00-11.30)
[2021-07-16 05:47] LABS: Albumin, Blood 2.4 g/dL (3.4-5.0); Anion Gap 7 mmol/L (6-16); Blood Urea Nitrogen 22 mg/dL (8-24); Bun/Creatinine Ratio 26.3 (12.0-20.0); CO2, Blood 28 mmol/L (21-32); Calcium, Blood 9.1 mg/dL (8.5-10.1); Chloride, Blood 107 mmol/L (98-108); Creatinine, Blood 0.84 mg/dL (0.60-1.20); Glomerular Filtration Rate 92 (60-); Glucose, Blood 110 mg/dL (70-99); Phosphorus, Blood 3.9 mg/dL (2.5-4.9); Potassium, Blood 3.9 mmol/L (3.5-5.5); Sodium, Blood 142 mmol/L (136-145)
--- NOTE | 2021-07-16 19:14 | NUR ---
SHIFT SUMMARY PT IS REFUSING ALL CARE TODYA, WILL NOT COOPERATE WITH STAFF FOR TURNS, MEALS, AND MEDICATIONS. PT WAS GOING TO GO HOME TODAY UNTIL GOT LOST IN TOWN AND HAD TO HAVE A POLICE ESCORT HOME. THIS NURSE WILL BE BACK TOMORROW AND WILL BE OPENING AN APS CASE. WILL CONTINUE TO MONITOR.
--- NOTE | 2021-07-17 04:56 | NUR ---
PATIENT ALERT TO SELF, VERY FLAT AFFECT, POOR EYE CONTACT AND WITHDRAWN. WHEN ASKED WHERE PATIENT WAS OR THE DATE HE WOULD BLANKLY STARE AWAY. PATIENT ABLE TO VERBALIZE THAT HE "WANTS ICE CREAM." ENDORSED IN REPORT THAT MD WANTED PT TO TAKE LEVAQUIN, PT AGREEABLE TO TAKE MEDICATONS AND AM LEVAQUIN GIVEN WITH NIGHT MEDICATIONS. PT ALLOWED STAFF TO TURN HIM AND AT TIMES ASSISTED. TURNED Q2H TO BEST OF STAFF AVAILABILITY. PT IS HEAVILY INCONTINENT, NO STOOL NOTED.
--- NOTE | 2021-07-17 17:28 | NUR ---
SHIFT SUMMARY PT WAS COMPLAINT THIS MORING WITH HIS MEDICATIONS BUT REFUSED HIS EVENING MEDICATIONS ONCE HE DISCOVERED HE WOULD NOT GO HOME TONIGHT. THIS AUTHOR CALLED APS AT 15:30 TODAY AND SPOKE WITH MELVINA TO REPORT CASE OF BEING UNABLE TO CARE FOR HERSELF AND CONCERNS OVER PT DISCHARGING HOME UNSAFELY. INFORMATION WAS GATHERED A FOLLOW UP CASE WAS STARTED THEY ALREADY HAS A CASE OPEN FOR THE COUPLE. PT WILL REMAIN IN HOSPITAL UNTIL DISCHARGE PLAN IS FINALIZED. WILL CONTINUE TO MONITOR.
--- NOTE | 2021-07-18 05:17 | NUR ---
PT ALERT TO SELF AND , WHEN ASKED OTHER QUESTIONS PT WOULD BLANKLY STARE AWAY, VERY FLAT AFFECT. PT WOULD REPLY EITHER SAYING "CAN I DRINK WATER OR CAN I HAVE ICE CREAM?" PT REMAINS INCONTINENT OF URINE NO BM DURING SHIFT. TURNED Q2H TO BEST OF STAFF AVAILABILITY.
--- NOTE | 2021-07-18 16:27 | NUR ---
SHIFT SUMMARY PATIENT IS ALERT AND ORIENTED TO SELF AND . WHEN WAS LEAVING AFTER VISIT TODAY, PATIENT BECAME AGITATED AND TRIED TO FORCIBLY LEAVE, SECURITY AND ADDITIONAL STAFF INTERVIENED AND GOT PATIENT BACK TO BED. ADDITIONAL PRN MEDICATIONS WERE ORDERED BUT NOT USED. PATINT REMAINS CALM AFTER BEING PLACED BACK IN BED. PATIENTS EVENING SEREQUIL HAS BEEN INCREASED. VITAL SIGNS REVIEWED. PATIENT HAS NO COMPLAINTS OF SOB, NAUSEA, PAIN OR VOMITTING THIS SHIFT. PATIENT IS CONTINUING TO BE WITHDRAWN AND REFUSES MOST CARE. BED IN LOCKED AND LOWEST POSITION. WILL MONITOR UNTIL SHIFT CHANGE.
--- NOTE | 2021-07-19 03:43 | NUR ---
PATIENT ALERT TO SELF AND . REMAINS W/VERY FLAT AFFECT AND WITHDRAWN. PATIENT ABLE TO ASSIST STAFF WITH TURNS WHILE IN BED AND AGREEING TO TAKE ALL MEDICATIONS EXCEPT LIQUACEL. PT MORE AWAKE TONIGHT AND MADE TWO COMMENTS ON TWO DIFFERENT OCCASSIONS ASKING STAFF HOW HE COULD EASILY WALK OUT THROUGH THE DOUBLE DOORS TO THE UNIT AND IF WE COULD LET HIM WALK OUT. PT REDIRECTED AND OFFERED ICE CREAM WHICH PATIENT ACCEPTED. PT REMAINS HEAVILY INCONTINENT AND MAKES NO ATTEMPTS TO NOTIFY STAFF THAT HE NEEDS TO URINATE.
[2021-07-19 08:06] LABS: Hemoglobin 7.9 g/dL (13.5-17.5)
[2021-07-19 08:15] LABS: Bun/Creatinine Ratio 21.7 (12.0-20.0); Calcium, Blood 8.8 mg/dL (8.5-10.1); Creatinine, Blood 0.74 mg/dL (0.60-1.20); Potassium, Blood 4.1 mmol/L (3.5-5.5)
--- NOTE | 2021-07-19 16:05 | NUR ---
SHIFT SUMMARY PATIENT IS ALERT AND ORIENTED TO SELF AND FAMILY ONLY. PATIENT HAS HAD FLAT AFFECT ALL SHIFT. PATIENT REFUSED BANDAGE CHANGE TO WOUND AREA. PATIENT TOOK ALL MEDICATIONS. PATIENT HAS BEEN INCONTINENT. PATIENT HAS HAD NO ACUTE EVENTS THIS SHIFT. VITAL SIGNS REVIEWED. PATIENTS STATES "SHE IS MEETING WITH POTENTIAL CAREGIVERS TOMORROW". BED IN LOCKED AND LOWEST POSITION. CALL LIGHT IN PLACE. WILL MONITOR UNTIL SHIFT CHANGE.
--- NOTE | 2021-07-20 05:22 | NUR ---
PT ALERT TO SELF, AND PLACE. REMAINS WITH VERY FLAT AFFECT AND NO EYE CONTACT. PT HAS POOR INSIGHT AND UNABLE TO CARE FOR SELF. HE IS INCONTINET OF URINE AND WHEN ASKED IF HE IS WET OR DRY HE REPLIES "I DON'T KNOW" AND WHEN CHECKED HE IS HEAVILY SOILED. PT ABLE TO TURN IN BED HOWEVER MOST OF THE TIME HE REFUSES TO HELP WHEN BEING CHANGED AND JUST LAYS THERE BEING A HEAVY TWO PERSON ASSIST. PT CALLED STATING THAT [facility] DOCTOR TOLD HER THAT THE PT "MUST BE ON CITRUCEL TO HELP HEAL." WILL RELAY THIS TO MORNING RN. DRESSING TO COCCYX/RIGHT GLUTEAL CHANGED AND PICTURE UPDATED IN PTS CHART.
--- NOTE | 2021-07-20 11:31 | NUR ---
PATIENT BECAME AGITATED WHEN SPOUSE STARTED TO LEAVE. PATIENT WAS COMPLAINING ABOUT THE FOOD HERE. THEY STARTED TO SHOUT THAT THEY WANTED TO GO HOME. THE PATIENT SAID THEY WANTED STEAK AND EGGS. THE SPOUSE WENT TO GET THE PATIENT STEAK AND EGGS. PATIENT WILLINGLY TOOK PO SEROQUEL FOR AGITATION. PATIENT IS CURRENTLY SITTING IN THE WATTS IN THE CHAIR AND NO LONGER SHOUTING AT THIS TIME.
--- NOTE | 2021-07-20 17:14 | NUR ---
SHIFT SUMMARY PATIENT IS ALERT AND ORIENTED X2 MOSTLY SELF AND SPOUSE. THE PATIENT BECOMES AGITATED DURING OR AFTER SPEAKING WITH THEIR SPOUSE. THE PATIENT HAS BEEN AGITATED MOST OF THE DAY. PRN SEROQUEL GIVEN X2. THE PATIENT HAS BEEN GETTING SNACKS AND SEEMS TO BE LESS AGITATED NOW. PATIENT IS CURRENTLY RESTING. VITAL SIGNS STABLE. 2 ASSIST TO THE RECLINER CHAIR. PATIENT HAS BEEN INCONTINENT THIS SHIFT. DRESSING CHANGE DONE TODAY CLEAN DRY AND INTACT. CALL LIGHT WITHIN REACH. BED IN LOWEST POSITION. BED ALARM ON.
--- NOTE | 2021-07-21 04:34 | NUR ---
PT ALERT TO SELF, AND PLACE. PT DROPPED OFF FAST FOOD AND PT TALKING TO THROUGH THE PHONE IN GREAT SPIRITS. PT WITH LESS FLAT AFFECT AND MORE VERBAL THIS SHIFT. PT ASSISTED MORE WITH TURNS HOWEVER REQUIRED A LOT OF VERBAL ENCOURAGING. REMAINS HEAVILY INCONTINENT OF URINE AND IS NOT ABLE TO VERBALIZE THAT HE IS WET. WHEN ASKED IF HE NEEDS TO BE CHANGED HE ALWAYS STATES "I DON'T KNOW." NO STOOL THIS SHIFT. DRESSING C/D/I CHANGED BY PREVIOUS RN. NO ACUTE CHANGES NOTED. PT SLEPT WELL.
--- NOTE | 2021-07-21 08:15 | NUR ---
pt laying in bed awake alert to self, place and time, has a flat affect but is conversing this am, denies pain, states he's doing ok and has been in the hospital 15 days, was cooperative with assessment, lungs are clear t/o, dim in bases, resp even and unlabored, no cough noted, hrr, no edema noted, ppp+2, cap refill <3sec v stable, afebrile, btx4, abd flat soft nontender, incont of urine, skin has decub to coccyx, will change dressing today, aura, call light in reach.
--- NOTE | 2021-07-21 15:02 | NUR ---
pt pullups were wet so attempted to get pt to wake him and have him roll while changing bed linens, but would not respond, but states "im awake", after new linens placed on bed pt voided on new ones before we could get his attends up, got another person and had him stand and get to chair with bed was cleaned, he then got himself to the bed without calling and was able to get him back to the chair with a fresh pepsi, chair alarm activated, he is very flat and tired acting. call light in reach.
--- NOTE | 2021-07-21 18:10 | NUR ---
Pt has had an uneventful day, has slept when left undisturbed, he did sit in his chair for about an hr this afternoon when we changed his bed, didn't always respond when asked to participate, but would tell me he's awake, no acute changes this shift. call light in reach.
[2021-07-22 11:10] LABS: Hematocrit 29.1 % (37.0-53.0); Hemoglobin 8.6 g/dL (13.5-17.5)
[2021-07-22 11:21] LABS: Bun/Creatinine Ratio 19.2 (12.0-20.0); Calcium, Blood 8.3 mg/dL (8.5-10.1); Creatinine, Blood 0.73 mg/dL (0.60-1.20)
--- NOTE | 2021-07-22 16:17 | NUR ---
SUMMARY- PT A/O X3, COOPERATIVE IN CARE. TOLERATING FOOD AND FLUIDS, REQ FOR ICE CREAM AND SODA T.O. DAY. DRESSING TO L GLUT INTACT. GROIN RED WITH RED RASH, NOW ORDER FOR MICONOZOLE CREAM. PT UP TO CHAIR TODAY THROUGH LUNCH, TOLERATED ACT WELL. CASE MANAGEMENT WORKING ON ARRANGING DISCHARGE LOGISTICS.
--- NOTE | 2021-07-22 18:56 | NUR ---
CHANGED R GLUT ZEREFORM GAUZE PACK, COVERED WITH MEPILEX, MOD AMOUNT OF SS DRAINAGE.
--- NOTE | 2021-07-23 16:17 | NUR ---
PATIENT WAS CALM TODAY, WITH NO COMPLAINTS. DRESSING CHANGE WAS DONE THIS AM, AND WOUND APPEARS TO BE HEALING. HE HAS NO PAIN, EVEN WHEN WOUND IS PACKED. PATIENT IS LOOKING TO [place] TOMORROW TO HOME WITH HOME HEALTH.
--- NOTE | 2021-07-24 04:49 | NUR ---
PT TURNED THROUGHOUT THE NIGHT AND CHANGED. PT IS WITHDRAWN AND UNINVOLVED IN CARE. DRESSING CHANGED ON WOUND AND CREAM APPLIED TO MOIST AREAS.
[2021-07-24] MEDS ORDERED: JUVEN PACKET1 EAC3 PO (10:26)
[2021-07-24] MEDS ORDERED: FERSU300 PO (10:27)
--- NOTE | 2021-07-24 11:33 | NUR ---
DISCHARGE PATIENT WAS DISCHARGED FROM [facility] 11AM, TRANSPORTED BY THE AMBULANCE SERVICE TO HIS HOME, WHERE HOME HEALTH SERVICES WILL BE STARTED. HE SIGNED DISCHARGE PAPERWORK AND INSTRUCTIONS WERE DISCUSSED. WOUND CARE WAS DONE BEFORE HE LEFT AND THE AREA LOOKS GOOD. PATIENT WAS HAPPY TO BE GOING HOME!
== END 2021-07-24 11:23 | disposition home health service (06) | DRG 871 ==
LOC: ER 14:25 → MEDS 20:49
PROVIDERS: Emergency Medicine; Internal Medicine; Nurse Practitioner Acute Care; ADMIT Internal Medicine
PROC: 3E03329 Introduction of Other Anti-infective into Peripheral Vein, Percutaneous Approach (ICD-10-PCS; principal; 2021-07-04)
PROC: 0J990ZZ Drainage of Buttock Subcutaneous Tissue and Fascia, Open Approach (ICD-10-PCS; 2021-07-05)
DX: A41.4 Sepsis due to anaerobes (principal); G92.8 Other toxic encephalopathy; L02.31 Cutaneous abscess of buttock; I82.812 Embolism and thrombosis of superficial veins of left lower extremity; F02.81 Dementia in other diseases classified elsewhere, unspecified severity, with behavioral disturbance; I82.512 Chronic embolism and thrombosis of left femoral vein; K92.2 Gastrointestinal hemorrhage, unspecified; C18.6 Malignant neoplasm of descending colon; K52.1 Toxic gastroenteritis and colitis; R65.20 Severe sepsis without septic shock; T36.95XA Adverse effect of unspecified systemic antibiotic, initial encounter; Z51.5 Encounter for palliative care; F31.9 Bipolar disorder, unspecified; D50.9 Iron deficiency anemia, unspecified; I10 Essential (primary) hypertension; L89.152 Pressure ulcer of sacral region, stage 2; Z79.2 Long term (current) use of antibiotics; Z79.01 Long term (current) use of anticoagulants; Z79.899 Other long term (current) drug therapy
CPT/HCPCS: 36415; 70470; 71045; 74177; 80048; 80053; 80069; 82270; 82272; 82378; 82728; 83540; 83550; 83605; 83735; 85014; 85018; 85025; 85027; 87040; 87070; 87075; 87077; 87186; 87205; 87493; 93970; 96365; 96375; 97110; 97116; 97162; 97166; 97530; 97535; 99285-25; A9270; J0696; J2060; J2543; J2704; J3010; J3370; J7030; J7060; Q9967

== ENCOUNTER 2022-02-06 21:59 | Emergency (ER) | payer OTHER ==
[~2022-02-06] VITALS: Ht 177.8 cm; Wt 97.5 kg
[~2022-02-06 21:59] MED LIST changes: +DIVA500EC PO; +FERSU300 PO; +JUVEN PACKET1 EAC3 PO
[2022-02-06 22:43] LABS: BASOPHILS ABSOLUTE AUTO 0.03 K/mm3 (0.00-0.23); BASOPHILS PERCENT AUTO 0 % (0-2); EOSINOPHILS PERCENT AUTO 5 % (0-6); Hematocrit 31.1 % (37.0-53.0); Hemoglobin 8.8 g/dL (13.5-17.5); IMMATURE GRAN ABSOLUTE AUTO 0.07 K/mm3 (0.00-0.10); IMMATURE GRAN PERCENT AUTO 1 % (0-1); LYMPHOCYTES ABSOLUTE AUTO 2.28 K/mm3 (0.84-5.20); LYMPHOCYTES PERCENT AUTO 26 % (21-46); MONOCYTES PERCENT AUTO 14 % (4-13); Mean Corpuscular HGB 20.9 pg (26.0-34.0); Mean Corpuscular HGB Conc 28.3 g/dL (31.5-36.5); Mean Corpuscular Volume 74 fL (80-100); Mean Platelet Volume 9.2 fL (9.1-12.4); NEUTROPHILS PERCENT AUTO 55 % (41-73); Platelet Count 437 K/mm3 (150-400); RDW Coefficient Variation 17.8 % (11.7-14.2); RDW Standard Deviation 46.7 fL (35.1-46.3); Red Blood Cell Count 4.22 M/mm3 (4.30-5.90); White Blood Cell Count 8.88 K/mm3 (4.00-11.30)
[2022-02-06 22:55] LABS: Albumin, Blood 2.8 g/dL (3.4-5.0); Albumin/Globulin Ratio 0.7 (0.8-1.8); Bilirubin, Total 0.2 mg/dL (0.1-1.0); Calcium, Blood 8.2 mg/dL (8.5-10.1); Creatinine, Blood 0.78 mg/dL (0.60-1.20); Globulin, Blood 4.1 g/dL (2.2-4.0); Potassium, Blood 3.9 mmol/L (3.5-5.5); Total Protein, Blood 6.9 g/dL (6.4-8.2)
== END 2022-02-07 00:02 | disposition home or self-care (01) ==
LOC: ER 21:59
PROVIDERS: Student in an Organized Health Care Education/Training Program
DX: Z04.3 Encounter for examination and observation following other accident (principal); I10 Essential (primary) hypertension; Z79.899 Other long term (current) drug therapy; W19.XXXA Unspecified fall, initial encounter
CPT/HCPCS: 36415; 80053; 83880; 84484; 85025; 93005; 93010

== ENCOUNTER 2022-08-03 10:10 | Emergency (ER) | payer OTHER ==
[~2022-08-03] VITALS: Ht 177.8 cm; Wt 108.9 kg
[~2022-08-03 10:10] MED LIST changes: +BENADRYL25 MG PO
[2022-08-03 11:14] LABS: BASOPHILS ABSOLUTE AUTO 0.04 K/mm3 (0.00-0.23); BASOPHILS PERCENT AUTO 1 % (0-2); EOSINOPHILS ABSOLUTE AUTO 0.02 K/mm3 (0.00-0.68); EOSINOPHILS PERCENT AUTO 0 % (0-6); Hematocrit 44.1 % (37.0-53.0); Hemoglobin 13.6 g/dL (13.5-17.5); IMMATURE GRAN ABSOLUTE AUTO 0.03 K/mm3 (0.00-0.10); IMMATURE GRAN PERCENT AUTO 0 % (0-1); LYMPHOCYTES PERCENT AUTO 18 % (21-46); MONOCYTES ABSOLUTE AUTO 1.26 K/mm3 (0.16-1.47); MONOCYTES PERCENT AUTO 19 % (4-13); Mean Corpuscular HGB 26.1 pg (26.0-34.0); Mean Corpuscular HGB Conc 30.8 g/dL (31.5-36.5); Mean Corpuscular Volume 85 fL (80-100); Mean Platelet Volume 9.5 fL (9.1-12.4); NEUTROPHILS ABSOLUTE AUTO 4.18 K/mm3 (1.96-9.15); NEUTROPHILS PERCENT AUTO 62 % (41-73); Platelet Count 271 K/mm3 (150-400); RDW Coefficient Variation 23.8 % (11.7-14.2); RDW Standard Deviation 72.8 fL (35.1-46.3); Red Blood Cell Count 5.22 M/mm3 (4.30-5.90); White Blood Cell Count 6.73 K/mm3 (4.00-11.30)
[2022-08-03 11:31] LABS: Albumin, Blood 2.9 g/dL (3.4-5.0); Albumin/Globulin Ratio 0.6 (0.8-1.8); Bilirubin, Total 0.4 mg/dL (0.1-1.0); Bun/Creatinine Ratio 19.2 (12.0-20.0); Creatinine, Blood 0.99 mg/dL (0.60-1.20); Potassium, Blood 4.1 mmol/L (3.5-5.5); Total Protein, Blood 7.9 g/dL (6.4-8.2)
[2022-08-03 11:49] VITALS: BP 122/54
== END 2022-08-03 14:22 | disposition home or self-care (01) ==
LOC: ER 10:10
PROVIDERS: Emergency Medicine
DX: J06.9 Acute upper respiratory infection, unspecified (principal); I10 Essential (primary) hypertension; F03.90 Unspecified dementia, unspecified severity, without behavioral disturbance, psychotic disturbance, mood disturbance, and anxiety; Z85.038 Personal history of other malignant neoplasm of large intestine; Z79.899 Other long term (current) drug therapy
CPT/HCPCS: 36415; 71045; 80053; 83605; 85025; J7030

== ENCOUNTER 2022-09-27 01:01 | Emergency (ER) | payer OTHER ==
[~2022-09-27] VITALS: Ht 177.8 cm; Wt 95.2 kg
[2022-09-27 02:51] VITALS: BP 140/67
== END 2022-09-27 03:00 | disposition home or self-care (01) ==
LOC: ER 01:01
DX: K94.09 Other complications of colostomy (principal); F03.90 Unspecified dementia, unspecified severity, without behavioral disturbance, psychotic disturbance, mood disturbance, and anxiety; I10 Essential (primary) hypertension; Z79.899 Other long term (current) drug therapy; K94.03 Colostomy malfunction
CPT/HCPCS: 99283

== ENCOUNTER 2023-04-28 14:28 | Inpatient (IN) | payer OTHER, MEDICARE ==
[~2023-04-28] VITALS: Ht 177.8 cm; Wt 125.0 kg
[2023-04-28 15:16] LABS: Hematocrit 49.5 % (37.0-53.0); Hemoglobin 16.5 g/dL (13.5-17.5); Mean Corpuscular HGB 29.5 pg (26.0-34.0); Mean Corpuscular HGB Conc 33.3 g/dL (31.5-36.5); Mean Corpuscular Volume 88 fL (80-100); Mean Platelet Volume 9.9 fL (9.1-12.4); Platelet Count 344 K/mm3 (150-400); RDW Coefficient Variation 14.7 % (11.7-14.2); White Blood Cell Count 10.56 K/mm3 (4.00-11.30)
[2023-04-28 15:36] LABS: Albumin, Blood 3.4 g/dL (3.4-5.0); Albumin/Globulin Ratio 0.8 (0.8-1.8); Bilirubin, Total 0.5 mg/dL (0.1-1.0); Bun/Creatinine Ratio 37.7 (12.0-20.0); Calcium, Blood 9.1 mg/dL (8.5-10.1); Creatinine, Blood 1.54 mg/dL (0.60-1.20); Globulin, Blood 4.4 g/dL (2.2-4.0); Magnesium, Blood 2.6 mg/dL (1.6-2.4); Potassium, Blood 4.3 mmol/L (3.5-5.5); Total Protein, Blood 7.8 g/dL (6.4-8.2)
[2023-04-28 15:58] LABS: BAND PERCENT MAN 33 % (0-8); BASOPHILS PERCENT MAN 0 % (0-2); EOSINOPHILS PERCENT MAN 1 % (0-6); LYMPHOCYTES PERCENT MAN 18 % (21-46); MONOCYTES ABSOLUTE MAN 1.68 K/mm3 (0.16-1.47); MONOCYTES PERCENT MAN 16 % (4-13); MYELOCYTE PERCENT MAN 1 % (0-0); NEUTROPHILS ABSOLUTE MAN 6.75 K/mm3 (1.96-9.15); SEG NEUTROPHILS PERCENT MAN 31 % (41-73); TOTAL CELLS COUNTED 100
[2023-04-28] MEDS ORDERED: MetroNIDAZOLE 500MG/NS 100 ml 100 ML IV ONE (16:30)
[2023-04-28] MEDS ORDERED: Lidocaine 2% Viscous Soln 15 ML UDC PO ONE (16:50)
[2023-04-28] MEDS ORDERED: Lidocaine 2% Jelly Uro-Jet TOP ONE (17:15)
[2023-04-28] MEDS ORDERED: NS 1,000 ML IV SCH ×2 (18:00→18:50)
[2023-04-28] MEDS ORDERED: NS 2,000 ML IV SCH (18:00)
[2023-04-28] MEDS ORDERED: CefTRIAXone Sodium 2,000 MG in NS 100 ML IV SCH (18:05)
[2023-04-28] MEDS ORDERED: FLU VACC QS2023-24(6MOS UP)/PF 60 MCG/0.5 ML SYRINGE IM SCH (18:50)
[2023-04-28] MEDS ORDERED: Ondansetron HCl 2 MG / ML 2ML Vial IV PRN (18:50)
[2023-04-28] MEDS ORDERED: FentaNYL Citrate 50 MCG/ML 2 ML Injection IV PRN (18:50)
[2023-04-28] MEDS ORDERED: Labetalol HCL 5 MG/ML 4ML Injection (Single Dose) IV PRN (18:55)
[2023-04-28] MEDS ORDERED: Piperacillin/Tazobactam Sod 3.375 GM in NS 50 ML IV SCH (19:00)
[2023-04-28 19:18] LABS: Base Excess Venous -4.7 mmol/L; Bicarbonate Venous 20.6 mmol/L (24.0-30.0); PCO2 Venous 37.2 mmHg (38-42); pH Blood Venous 7.36 (7.34-7.37)
[2023-04-28] MEDS ORDERED: Metoprolol Tartrate 1 MG/ML 5 ML VIAL IV ONE (20:00)
[2023-04-28 22:00] VITALS: BP 144/85
[2023-04-28 23:00] VITALS: BP 128/80
[2023-04-28 23:30] VITALS: BP 129/81
[2023-04-29] VITALS (17 sets, daily range): BP systolic 112–171; BP diastolic 72–99
[2023-04-29] MEDS ORDERED: Insulin Human Lispro 100 Units/ML 3ML Syringe SC SCH
[2023-04-29] MEDS ORDERED: Piperacillin/Tazobactam Sod 3.375 GM in NS 50 ML IV SCH (02:00)
[2023-04-29 03:25] LABS: Hematocrit 45.5 % (37.0-53.0); Hemoglobin 15.3 g/dL (13.5-17.5); Mean Corpuscular HGB 30.1 pg (26.0-34.0); Mean Corpuscular HGB Conc 33.6 g/dL (31.5-36.5); Mean Corpuscular Volume 89 fL (80-100); Platelet Count 244 K/mm3 (150-400); RDW Coefficient Variation 14.9 % (11.7-14.2); RDW Standard Deviation 48.4 fL (35.1-46.3); Red Blood Cell Count 5.09 M/mm3 (4.30-5.90); White Blood Cell Count 11.86 K/mm3 (4.00-11.30)
[2023-04-29 03:39] LABS: International Normalized Ratio 1.1; Prothrombin Time Results 11.5 Sec (9.7-11.5)
[2023-04-29 03:46] LABS: Albumin, Blood 2.7 g/dL (3.4-5.0); Albumin/Globulin Ratio 0.8 (0.8-1.8); Bilirubin, Total 0.4 mg/dL (0.1-1.0); Bun/Creatinine Ratio 38.5 (12.0-20.0); Calcium, Blood 7.8 mg/dL (8.5-10.1); Creatinine, Blood 1.35 mg/dL (0.60-1.20); Globulin, Blood 3.6 g/dL (2.2-4.0); Magnesium, Blood 2.3 mg/dL (1.6-2.4); Potassium, Blood 3.9 mmol/L (3.5-5.5); Total Protein, Blood 6.3 g/dL (6.4-8.2)
[2023-04-29 03:57] LABS: BAND PERCENT MAN 29 % (0-8); BASOPHILS PERCENT MAN 0 % (0-2); EOSINOPHILS PERCENT MAN 0 % (0-6); LYMPHOCYTES ABSOLUTE MAN 0.71 K/mm3 (0.84-5.20); LYMPHOCYTES PERCENT MAN 6 % (21-46); METAMYELOCYTE ABSOLUTE MAN 0.11 K/mm3 (0.00-0.00); METAMYELOCYTE PERCENT MAN 1 % (0-0); MONOCYTES ABSOLUTE MAN 1.54 K/mm3 (0.16-1.47); MONOCYTES PERCENT MAN 13 % (4-13); MYELOCYTE ABSOLUTE MAN 0.47 K/mm3 (0.00-0.00); MYELOCYTE PERCENT MAN 4 % (0-0); NEUTROPHILS ABSOLUTE MAN 9.01 K/mm3 (1.96-9.15); SEG NEUTROPHILS PERCENT MAN 47 % (41-73); TOTAL CELLS COUNTED 100
--- NOTE | 2023-04-29 05:16 | NUR ---
SHIFT SUMMARY: PT RESTING COMFROTABLY IN BED. HE IS A&OX4 AND RESPONDING TO QUESTIONS APPROPRIATLY. HE DENIES ANY CURRENT PAIN, N/V, OR DIZZINESS. HE HAS NG TUBE PLACED TO INTERMITTENT SUCTION W/ MINIMAL OPUT. HE HAS BEEN ON 5L NC TO MAINTAIN O2 SATURATION > 92. HR HAS BEEN SUSTAINED AT 115-125 AND BLOOD PRESSURE HAS BEEN WNL.
[2023-04-29] MEDS ORDERED: CefTRIAXone Sodium 2,000 MG in NS 100 ML IV SCH (09:00)
--- NOTE | 2023-04-29 15:41 | NUR ---
TRANSFER TO MEDICAL REPORT CALLED VIA PHONE. ALL QUESTIONS ANSWERED. PT TAKEN TO ROOM 334 VIA BED WITH JOINER. ALL PT MEDS AND BELONGINGS SENT WITH PT.
--- NOTE | 2023-04-29 16:41 | NUR ---
TRANFER NOTE: ICU8--->MED FLOOR 334 ASSUME CARE OF THE PATIENT. PATIENT ARRIVED VIA HOSPITAL BED AND DUE TO FATIGUE POST PT PATIENT REQUESTED TO BE SLID OVER ONTO THE NEW BED. HIS ERICA AND HER CAREGIVER CIELO WERE ACCOMPANYING THE PATIENT WHEN HE ARRIVED AND STAYED FOR A SHORT PERIOD. WHEN THE AND HER CAREGIVER LEFT, THEY SAID BYE TO THE PATIENT, HE RESPONDED WITH "MMM HMM" AND "OKAY" WAS TOLD SEVERAL TIMES BY THE THAT THE PATIENT WAS TIRED. HIS EYES HAVE REMAINED CLOSED DUE TO RESTING/SLEEPING. HE OCASSIONALLY RESPONSES TO STAFF WHEN ADDRESSING HIM, BUT DOESN'T RESPOND EACH TIME. HARD TO SAY IF THIS IS SELECTIVE OR NOT DUE TO LACK OF KNOWLEDGE ON THE PATIENT. WAS TOLD IN REPORT THAT THE PATIENT HAS A FLAT AFFECT, BUT WILL ANSWER QUESTIONS APPROPRIATELY. PATIENT SETTLED IN ROOM, FLUIDS AND IV ANTIBIOTICS STARTED, BED IN LOWEST POSITION, BED ALARM SET, AND CALL LIGHT WITHIN REACH. VITALS WERE OBTAINED AND TO BE APPEARING HIS BASELINE SINCE ADMISSION. PATIENT ISN'T SHOWING ANY SIGNS OR SYMPTOMS OF DISTRESS. PLAN OF CARE ONGOING.
[2023-04-30 03:59] VITALS: BP 184/102
[2023-04-30 05:44] VITALS: BP 158/89
--- NOTE | 2023-04-30 06:22 | NUR ---
PATIENT IS ALERT AND NONVERBAL. WITH PIV LINE ON LEFT AC AND LEFT HAND PATENT AND INTACT, WITH ONGOING IV FLUIDS INFUSING WELL. WITH NG TUBE TO LOW SUCTION. WITH ILEOSTOMY CONNECTED TO BAG DRAINING WELL. BLOOD SUGAR CHECK MONITORED Q6 HOURS. MAINTAINED ON NPO. NO COMPLAINT MADE. NEEDS ATTENDED. CALL LIGHT WITHIN PATIENT'S REACH. WILL CONTINUE TO MONITOR.
[2023-04-30 07:16] VITALS: BP 179/90
[2023-04-30 07:58] LABS: Hematocrit 41.8 % (37.0-53.0); Hemoglobin 13.8 g/dL (13.5-17.5)
[2023-04-30 08:10] LABS: Bun/Creatinine Ratio 30.6 (12.0-20.0); Calcium, Blood 8.3 mg/dL (8.5-10.1); Creatinine, Blood 1.11 mg/dL (0.60-1.20); Potassium, Blood 3.4 mmol/L (3.5-5.5)
[2023-04-30] MEDS ORDERED: Piperacillin/Tazobactam Sod 3.375 GM ONE (08:11)
[2023-04-30] MEDS ORDERED: Potassium Chloride 40 MEQ in NS 250 ML IV ONE (09:40)
--- NOTE | 2023-04-30 10:26 | NUR ---
TELE: HAVE HAD MULTIPLE CALLED FROM TELEMETRY REGUARDING EVENTS. STARTING AT 0808: REPORTED HR IN THE 30'S NON SUSTAINED AND A 2 SEC PAUSE. 0816: REPORTED HR BACK IN THE 30'S NON SUSTAINED 2.5 SEC PAUSE. INCREASE IN PAUSES. 3RD CALL REPORTED HR IN THE 30'S AGAIN STILL NON SUSTAINING, BUT INCREASED P WAVES AND A SECOND DEGREE HEART BLOCK TYPE 2. EKG OBTAINED AND PUT IN CHART. REPORTED RESULTS AND TELE EVENTS TO DR. DEAN. PATIENT CURRENTLY SINUS TACH 118. PATIENT REMAINS CALM, DENIES CHEST PAIN OR SHORTNESS OF BREATH AND STATES THAT HE FEELS FINE. NO SIGNS OR SYMPTOMS OF DISTRESS. PATIENT WILL BE TRANSFERRING TO PCU.
[2023-04-30 10:58] VITALS: BP 186/109
[2023-04-30] MEDS ORDERED: HydrALAZINE HCl 20 MG / ML 1ML Vial IV PRN (11:30)
--- NOTE | 2023-04-30 11:30 | NUR ---
ARRIVAL TO PCU PT ARRIVED TO PCU 19 FROM [facility]ICAL [facility] AT 1050 VIA BED. PT SOMULENT ON ARRIVAL, ABLE TO WAKE TO VERBAL STIMULI. WAS ABLE TO TELL THIS RN NAME, , AND LOCATION. QUICKLY FALLS BACK ASLEEP. BP HYPERTENSIVE 186/101, HR ST 100'S, AFEBRILE, SP2 >93% ON 2L NC. RESPIRATIONS EVEN AND UNLABORED. PT WITH NON PRODUCTIVE COUGH, LUNG SOUNDS CLEAR IN UPPER, DIM IN BASES. ABD FIRM, NON TENDER, BOWEL SOUNDS +. PT WITH NG TUBE IN PLACE, CONNECTED TO LIS. PT WITH ILEOSTOMY, WITH MINIMAL OUTPUT. +3 EDEMA NOTED IN LOWER EXTREMITIES. PULSES FAINT. PT DENIES CP/PRESSURE, DENIES PAIN THROUGHOUT. EKG CURRENTLY BEING OBTAINED BY PCT. CONSULT CALLED TO CARDIOLOGY. MEDICAL FLOOR NURSE TO CALL FAMILY AND UPDATE ON ROOM CHANGE. PT ORIENTED TO ROOM AND CALL LIGHT SYSTEM, ATTENDS CHANGED. BED IN LOW, CALL LIGHT IN REACH.
[2023-04-30] MEDS ORDERED: EPINEPhrine HCl 0.1 MG/ML 10ML SYR IV SCH (11:50)
[2023-04-30] MEDS ORDERED: Atropine Sulfate 0.1 MG/ML 10ML SYR IV SCH (11:50)
[2023-04-30] MEDS ORDERED: AmLODIPine Besylate 5 MG Tab PO SCH ×2 (12:30→21:00)
[2023-04-30] MEDS ORDERED: EPINEPhrine HCl 0.1 MG/ML 10ML SYR IV PRN (12:35)
[2023-04-30] MEDS ORDERED: Atropine Sulfate 0.1 MG/ML 10ML SYR IV PRN (12:35)
[2023-04-30 15:38] VITALS: BP 157/88
--- NOTE | 2023-04-30 16:45 | NUR ---
SHIFT SUMMARY: PT WITH NO ACUTE CHANGES SINCE ARRIVAL TO PCU. CARDIOLOGST AT BEDSIDE THIS AFTERNOON, ORDERS FOR ATROPINE AND EPINEPHRINE TO REMAIN AT BEDSIDE. NO PLAN FOR INTERVENTIONS AT THIS TIME. PT REMAINS ASYMPTOMATIC WITH BRADYCARDIC EPISODES. BP HYPERTENSIVE, HOME MEDS RESTARTED. THIS RN SPOKE WITH PT SPOUSE THIS AFTERNOON AND UPDATED ON PLAN OF CARE. NG REMAINS IN PLACE, CONNECTED TO LIS. NS GTT @125ML/HR. BED IN LOW, CALL LIGHT IN REACH, WILL REPORT TO ONCOMING RN.
[2023-04-30 19:57] VITALS: BP 157/99
[2023-05-01] VITALS (9 sets, daily range): BP systolic 150–190; BP diastolic 64–106
--- NOTE | 2023-05-01 02:53 | NUR ---
AT ABOUT 0240, PT PULLED NG TUBE. WHEN ASKED WHY HE DID THIS, PT RESPONDED THAT HE DID NOT WANT IT ANYMORE. WHEN ASKED WHY HE DID NOT ASK STAFF ABOUT REMOVAL HE DID NOT ANSWER. ALSO PULLED OF PULSE OXIMETER AND GAVE SAME REASONING FOR WHY. INFORMED THAT I MAY NEED TO PLACE ANOTHER NG TUBE TO WHICH HE REPLIED THAT HE DID NOT WANT ANOTHER ONE. EDUCATED ON INDICATION BUT PT REAFFIRMED THAT HE DID NOT WANT IT REGARDLESS. ORIENTATION UNCHANGED FROM SHIFT ASSESSMENT AT BEGINNING OF SHIFT, WAS ABLE TO TELL ME HIS NAME/, THE DAY OF THE WEEK, WHERE HE IS. ASKED SEVERAL FOLLOW UP QUESTIONS AND PT REMAINED QUIET AND IGNORED MOST OF THEM. BED ALARM REMAINS ACTIVE. CALL LIGHT REMAINS WITHIN REACH. ABX CONTINUES TO INFUSE. CONTINUING TO MONITOR.
[2023-05-01 03:44] LABS: Hematocrit 43.8 % (37.0-53.0); Hemoglobin 14.2 g/dL (13.5-17.5); Mean Corpuscular HGB 29.4 pg (26.0-34.0); Mean Corpuscular HGB Conc 32.4 g/dL (31.5-36.5); Mean Corpuscular Volume 91 fL (80-100); Mean Platelet Volume 9.9 fL (9.1-12.4); Platelet Count 271 K/mm3 (150-400); RDW Coefficient Variation 14.8 % (11.7-14.2); RDW Standard Deviation 49.1 fL (35.1-46.3); Red Blood Cell Count 4.83 M/mm3 (4.30-5.90); White Blood Cell Count 18.09 K/mm3 (4.00-11.30)
[2023-05-01 04:14] LABS: Albumin, Blood 2.6 g/dL (3.4-5.0); Anion Gap 3 mmol/L (6-16); Blood Urea Nitrogen 24 mg/dL (8-24); Bun/Creatinine Ratio 24.9 (12.0-20.0); CO2, Blood 25 mmol/L (21-32); Calcium, Blood 8.1 mg/dL (8.5-10.1); Chloride, Blood 113 mmol/L (98-108); Creatinine, Blood 0.96 mg/dL (0.60-1.20); Glomerular Filtration Rate 82 (60-); Glucose, Blood 120 mg/dL (70-99); Magnesium, Blood 2.5 mg/dL (1.6-2.4); Phosphorus, Blood 2.2 mg/dL (2.5-4.9); Potassium, Blood 3.6 mmol/L (3.5-5.5); Sodium, Blood 141 mmol/L (136-145)
--- NOTE | 2023-05-01 04:51 | NUR ---
SHIFT SUMMARY. PT HAS BEEN MOSTLY UNCOOPERATIVE AND UNAGREEABLE THROUGHOUT SHIFT. HAS REMAINED AOX3 THROUGHOUT SHIFT. PT SOMNOLENT AND AT TIMES REQUIRES PHYSICAL STIMULI TO AROUSE BUT THIS APPEARS TO BE DUE TO WILLFUL IGNORING OF STAFF RATHER THAN AUTHENTIC LETHARGY. ABLE TO BE AROUSED BUT WILL QUICKLY FALL BACK TO SLEEP WHEN LEFT UNENGAGED. THIS MORNING PT PULLED OUT NG TUBE, PULLED OFF PULSE OXIMETER, AND GENERALLY BECAME INCREASINGLY UNCOOPERATIVE WITH CARE. SEE RELATED NOTE FOR DETAILS. PT HAS BEEN SLEEPING SINCE THAT TIME. BP WAS ELEVATED THIS MORNING, ADMINISTERED PRN HYDRALAZINE AND SINCE THAT TIME SBP HAS COME DOWN <180. PT CALLS APPROPRIATELY AT TIMES AND AT OTHER TIMES SHOUTS INTO WATTS. REFUSING MOST CARE OR IN SOME CASES, INCLUDING BRIEF CHANGES, ALLOWS CARE TO BE PERFORMED BUT IS NOT COOPERATIVE WITH DIRECTIONS. TELE ON THROUGHOUT SHIFT, HAS BEEN IN SINUS THROUGHOUT SHIFT WITH ONLY EVENT BEING A BRIEF INSTANCE OF BRADYCARDIA EARLY IN SHIFT WHICH QUICKLY INCREASED TO NORMAL RATE. BED LOCKED IN LOWEST POSITION. CALL LIGHT LEFT WITHIN REACH. CONTINUING TO MONITOR.
[2023-05-01] MEDS ORDERED: HydrALAZINE HCl 20 MG / ML 1ML Vial IV PRN (05:10)
[2023-05-01] MEDS ORDERED: HydrALAZINE HCl 20 MG / ML 1ML Vial IV ONE (05:10)
--- NOTE | 2023-05-01 16:58 | NUR ---
SHIFT SUMMARY: PT REMAINS ALERT AND ORIENTED X3, ABLE TO ANSWER ALL ORIENTATION QUESTIONS, PT CONTINUES TO IGNORE STAFF AND REFUSE CARE AT TIMES. BP AND HR STABLE. AFEBRILE. SPO2 >96% ON ROOM AIR. RESPIRATIONS EVEN AND UNLABORED. PULSES STRONG AND EQUAL THROUGHOUT. ABD FIRM, NON TENDER. BOWEL SOUNDS +. PT WITH ILEOSTOMY, APPOX 600ML OF LIQUID BROWN STOOL OUT THIS SHIFT. INC OF URINE. PT REMOVED L WRIST IV THIS SHIFT. WHEN ASKED REASON WHY PT STATES "I DID NOT WANT IT ANYMORE." L. AC IV REMAINS IN PLACE NS GTT @125ML/HR. PT IN RECLINER MOST OF SHIFT, 2 PERSON ASSIST WITH WALKER. RECEIVED BEDBATH. ADVANCED TO FULL LIQUID DIET, TOLERATED WELL. PT CURRENTLY SITTING IN RECLINER WATCHING TV, CALL LIGHT IN REACH, WILL REPORT TO ONCOMING RN.
[2023-05-01] MEDS ORDERED: Sodium Phosphate Mono/Dibasic 250 MG Tab PO SCH (17:00)
[2023-05-01] MEDS ORDERED: Losartan Potassium 50 MG Tab PO SCH (21:00)
--- NOTE | 2023-05-01 22:45 | NUR ---
TRANSFER TO [place] [id number] GAVE REPORT TO [facility] FLOOR CHARISSE RANDHAWA. ALL QUESTIONS ANSWERED. VSS, C[place] UPON TRANSFER TO [facility].
[2023-05-01] MEDS ORDERED: Piperacillin/Tazobactam Sod 3.375 GM ONE ×2 (23:36→23:37)
--- NOTE | 2023-05-02 00:40 | NUR ---
PT ARRIVED TO THE UNIT AT 2320. PT A&O x3, TO SELF, PLACE, AND HALF OF THE CURRENT SITUATION. VSS, AFEBRILE, PT ON RA, NO SIGNS OF RESPIRATORY DISTRESS NOTED, RESP RATE EVEN AND UNLABORED. PT TRANSPORTED FROM U-19 TO MEDICAL UNIT RM 304. PT BEDREST. PT FOLLOWS COMMANDS, WAS ABLE TO ANSWER SOME OF THE NURSING ASSESSMENT QUESTIONS, IGNORING SOME QUESTIONS. PT DENIED CHEST PAIN, NO NAUSEA, NO VOMITING, NO PAIN/DISCOMFORT IN GENERAL. NO MAJOR SKIN ISSUES EXCEPT DRY SCATTERED SCABS TO LLE. PT STATED THAT HE IS FROM [facility]. PT COMPLAINT WITH SCD's. 0100: PT APPEARS TO BE SLEEPING SOUNDLY. IV ABX RUNNING. FREQUENT SAFETY CHECKS COMPLETED THROUGHOUT THE SHIFT. CALL LIGHT WITHIN REACH, WCTM.
[2023-05-02 03:17] VITALS: BP 154/78
--- NOTE | 2023-05-02 04:54 | NUR ---
END OF SHIFT SUMMARY PT SLEPT FOR THE MAJORITY OF THE SHIFT ONCE ARRIVING TO THE UNIT. PT INCONTINENT OF BLADDER, TOTAL BED CHANGE x1 OVERNIGHT. PT VERY DIFFICULT TO REPOSITION/HELP WITH TURNS. PT BEDREST FOR NOW, IT TOOK 3 CARESTAFF TO HELP ASSIST WITH BED CHANGE. NO BEHAVIORS NOTED ON NOC SHIFT. ILEOSTOMY BAG TO RLQ WAS EMPTIED. PT ON TELE, NSR AT 92 BPM. NO CARDIAC EVENTS. PT DENIED CHEST PAIN/SOB. PT APPEARS TO BE RESTING COMFORTABLY IN BED. RESP RATE EVEN AND UNLABORED. BP WNL THIS MORNING. CBG's ACHS, BLOOD SUGARS STABILIZED AT 105, NO S/SX OF HYPOGLYCEMIA NOTED. PT ON A CLEAR LIQUID DIET. CALL LIGHT WITHIN REACH, WCTM.
[2023-05-02 06:48] LABS: Hematocrit 40.8 % (37.0-53.0); Hemoglobin 13.6 g/dL (13.5-17.5); Mean Corpuscular HGB 29.8 pg (26.0-34.0); Mean Corpuscular HGB Conc 33.3 g/dL (31.5-36.5); Mean Corpuscular Volume 90 fL (80-100); Mean Platelet Volume 9.9 fL (9.1-12.4); Platelet Count 231 K/mm3 (150-400); RDW Coefficient Variation 14.7 % (11.7-14.2); RDW Standard Deviation 47.9 fL (35.1-46.3); Red Blood Cell Count 4.56 M/mm3 (4.30-5.90)
[2023-05-02 07:04] LABS: Albumin, Blood 2.4 g/dL (3.4-5.0); Anion Gap 4 mmol/L (6-16); Blood Urea Nitrogen 14 mg/dL (8-24); Bun/Creatinine Ratio 16.7 (12.0-20.0); CO2, Blood 25 mmol/L (21-32); Calcium, Blood 8.4 mg/dL (8.5-10.1); Chloride, Blood 111 mmol/L (98-108); Creatinine, Blood 0.84 mg/dL (0.60-1.20); Glomerular Filtration Rate 90 (60-); Glucose, Blood 136 mg/dL (70-99); Magnesium, Blood 2.2 mg/dL (1.6-2.4); Phosphorus, Blood 3.9 mg/dL (2.5-4.9); Potassium, Blood 3.4 mmol/L (3.5-5.5); Sodium, Blood 140 mmol/L (136-145)
[2023-05-02] MEDS ORDERED: Potassium Chloride 20 MEQ TabCR PO ONE (07:20)
[2023-05-02 07:30] VITALS: BP 152/71
[2023-05-02] MEDS ORDERED: Insulin Human Lispro 100 Units/ML 3ML Syringe SC SCH (11:30)
[2023-05-02 15:43] VITALS: BP 178/94
[2023-05-02 19:36] VITALS: BP 177/81
--- NOTE | 2023-05-02 19:49 | NUR ---
PT VERY CONCERNED WITH DISCHARGE PLAN. STATES THAT THERE WILL NOT BE ANYONE HOME UNTIL AFTER 1PM. CONCERNED WITH HAVING TO PAY FOR SUPPLIES. PT IS ALERT AND ORIENTED X4. FLAT AFFECT. LITTLE CONVERSATION. YES, NO ANSWERS. 3-4 PERSON NEEDED TO TURN PT. ILEOSTOMY CHANGED TODAY. PT UNABLE TO GET OUT OF BED. REFUSED MOST CARES AND CONVERSATION.
[2023-05-02] MEDS ORDERED: MELA3 PO (22:14)
[2023-05-03 01:51] VITALS: BP 183/92
--- NOTE | 2023-05-03 04:39 | NUR ---
SHIFT SUMMARY Pt A&OX4 this shift. Denies pain. VSS. Resp even nonlabored. Frequent brief changes complete with JET WIPER for urine incontinence. IVF dc'd. Tolerating food and liquids. Brown liquid from ostomy drained. Encouraged pt to get some sleep as remains awake at 0300. Pain and safety maintained. SCDs in place. Will continue to monitor this shift.
[2023-05-03 07:18] VITALS: BP 152/96
--- NOTE | 2023-05-03 07:49 | NUR ---
PATIENT REMOVED HIS IV DURING SHIFT CHANGE. WAS TOLD THAT PATIENT HAS REMOVED MULTIPLE IVS SINCE ADMISSION. CALLED TELEMETRY AND THEY REPORT NO EVENTS IN THE LAST 24 HOURS. (BEEN RUNNING SINUS TACH AT 104) MEDS WERE CHANGED TO ORAL. CALLED DR. DEAN AND PLAN IS TO DISCHARGE TODAY. OKAY TO D/C TELE AND IV ACCESS. ORDERS PLACED.
[2023-05-03] MEDS ORDERED: Lactobacil 2-S.Thermo-Bifido 1 1 Cap PO SCH (09:00)
[2023-05-03] MEDS ORDERED: Amoxicillin/Clavulanate K 875 MG Tab PO SCH (09:00)
[2023-05-03] MEDS ORDERED: AMOCLA875 PO (12:55)
[2023-05-03] MEDS ORDERED: THERA-D2000 UNIT PO (12:56)
--- NOTE | 2023-05-03 17:45 | NUR ---
DISCHARGE NOTE: MEDICAL TRANSPORT ARRIVED FOR THE PATIENT AT 1420 VIA WHEELCHAIR. PATIENT HASN'T BEEN COMPLIANT WITH THERAPY OR PARTICIPATORY IN HIS CARE. HE STATES THAT HE WALKS AND THAT HE WALKS AT HOME. HE FAILS TO SHOW THAT INPATIENT; THEREFORE WHEELCHAIR TRANPORT WAS CANCELLED AND [facility] WAS CALLED. [facility] ARRRIVED AT 1730, BELONGINGS AND PAPEWORK GIVEN TO TRANPORTERS, AND PATIENT TRANSFERRED TO [facility]. NO SIGNS OR SYMPTOMS OF DISTRESS.
== END 2023-05-03 17:39 | disposition home health service (06) | DRG 177 ==
LOC: ER 14:28 → ICUE 14:29 → ER 14:29 → ICUE 18:45 → MEDS 18:45 → ER 18:45 → ICUE 18:45 → MEDS 22:29 → ICUE 04-29 09:00 → MEDS 04-29 15:45 → PCU 04-30 10:57 → MEDS 05-01 23:22
PROVIDERS: Internal Medicine; Nurse Practitioner Acute Care; Physician Assistant; ADMIT Student in an Organized Health Care Education/Training Program
PROC: 0D9670Z Drainage of Stomach with Drainage Device, Via Natural or Artificial Opening (ICD-10-PCS; principal; 2023-04-28)
DX: J69.0 Pneumonitis due to inhalation of food and vomit (principal); J96.01 Acute respiratory failure with hypoxia; K56.600 Partial intestinal obstruction, unspecified as to cause; F03.918 Unspecified dementia, unspecified severity, with other behavioral disturbance; D61.818 Other pancytopenia; N17.9 Acute kidney failure, unspecified; E87.1 Hypo-osmolality and hyponatremia; I10 Essential (primary) hypertension; F31.9 Bipolar disorder, unspecified; I49.5 Sick sinus syndrome; I44.39 Other atrioventricular block; E11.65 Type 2 diabetes mellitus with hyperglycemia; R74.01 Elevation of levels of liver transaminase levels; Z85.038 Personal history of other malignant neoplasm of large intestine; Z90.49 Acquired absence of other specified parts of digestive tract; Z93.2 Ileostomy status
CPT/HCPCS: 36415; 74177; 80048; 80053; 80069; 82803; 82947; 83605; 83615; 83690; 83735; 84132; 84145; 84443; 85014; 85018; 85025; 85027; 85610; 93005; 93010; 94760; 94762; 96365-59; 96368; 96375; 97110; 97162; 97166; 97530; 97535; 99285-25; A9270; J0360; J0696; J2543; J3480; J7030; J7050; Q9967